=== PATIENT | male | born 1950 | race Caucasian/White ===

== ENCOUNTER 2017-01-31 09:47 | Inpatient (IN) | payer OTHER ==
[2017-01-31] VITALS (8 sets, daily range): BP systolic 117–148; BP diastolic 40–97; O2SAT 92–98
[~2017-01-31] VITALS: Ht 180.3 cm; Wt 165.3 kg
[~2017-01-31 09:47] MED LIST: ATEN25TA PO; AUGM875T27 PO; DULC5TAB PO; FURO1TAB15 PO; KLOR1TAB69 PO; LISI40TAB PO; NAPR500T2 PO; PERC5TAB6 PO; PRAD75CA3 PO; PRAV10TA PO; PROT1TAB2 PO; RAMI10CA PO; TYLE325T5 PO; ZITH500T PO
[2017-01-31] MEDS ORDERED: NS 500 ML IV ONE ×2 (10:00→12:00)
[2017-01-31 10:42] LABS: BASO % 0.5 % (0.0-1.0); EOS # 0.1 K/mm3 (0.0-0.50); EOS % 1.1 % (0.0-3.0); LARGE UNSTAINED CELL # 0.1 K/mm3 (0.0-0.4); LARGE UNSTAINED CELL % 1.1 % (0.0-4.0); LYMPH # 1.1 K/mm3 (1.5-4.5); LYMPH % 19.3 % (24.0-44.0); MEAN CORPUSCULAR HEMOGLOBIN 32.3 pg (27.0-33.0); MEAN CORPUSCULAR HGB CONC 33.4 g/dl (32.0-36.5); MEAN CORPUSCULAR VOLUME 96.5 fl (80.0-96.0); MONO # 0.4 K/mm3 (0.0-0.8); MONO % 6.7 % (0.0-5.0); NEUTROPHILS # 4.1 K/mm3 (1.8-7.7); NEUTROPHILS % 71.3 % (36.0-66.0); PLATELET COUNT, AUTOMATED 223 k/mm3 (150-450); RED CELL DISTRIBUTION WIDTH 12.5 % (11.5-14.5); WHITE BLOOD COUNT 5.7 K/mm3 (4.0-10.0)
[2017-01-31 11:09] LABS: ALBUMIN 3.2 GM/DL (3.2-5.2); ALBUMIN/GLOBULIN RATIO 0.97 (1.00-1.93); ALKALINE PHOSPHATASE 51 U/L (45-117); ALT/SGPT 14 U/L (12-78); ANION GAP 7 MEQ/L (8-16); AST/SGOT 16 U/L (15-37); BILIRUBIN,DIRECT 0.2 MG/DL (0.0-0.2); BILIRUBIN,TOTAL 0.5 MG/DL (0.2-1.0); BLOOD UREA NITROGEN 24 MG/DL (7-18); CALCIUM LEVEL 8.4 MG/DL (8.8-10.2); CARBON DIOXIDE LEVEL 30 MEQ/L (21-32); CHLORIDE LEVEL 91 MEQ/L (98-107); CREATININE FOR GFR 0.78 MG/DL (0.70-1.30); GLOMERULAR FILTRATION RATE > 60.0 (>49); GLUCOSE, FASTING 120 MG/DL (80-110); POTASSIUM SERUM 4.2 MEQ/L (3.5-5.1); SODIUM LEVEL 128 MEQ/L (136-145); TOTAL PROTEIN 6.5 GM/DL (6.4-8.2)
[2017-01-31 11:40] LABS: INR 1.18
[2017-01-31] MEDS ORDERED: ISOVUE-370 76% 100ML VIAL (Q9967) As Ordered ONE (12:15)
[2017-01-31] MEDS ORDERED: ONDANSETRON 4MG/2ML VIAL (J2405) IV PRN ×2 (13:45→16:45)
[2017-01-31] MEDS ORDERED: LISI40TAB PO (13:52)
[2017-01-31] MEDS ORDERED: POTA20TA PO (13:52)
--- NOTE | 2017-01-31 15:11 | REP ---
CT ABDOMEN AND PELVIS WITH CONTRAST: HISTORY: Epigastric pain. CONTRAST: Isovue-370, 100 mL. There is thickening of the wall of the antrum of the stomach and proximal duodenum. Stranding is present in the surrounding fat. There is no free air. An 8 mm hypodensity is present in the left lobe of the liver. A 1.6 cm hypodensity is present in the right lobe of the liver. These may represent cysts. The gallbladder, pancreas, spleen, adrenal glands, and kidneys are normal in appearance. There is no adenopathy or free fluid. A 4 cm ventral abdominal hernia containing fat is present. The prostate gland and urinary bladder are normal in appearance. A calcified granuloma is present in the right lower lobe. Degenerative change is present in the spine. IMPRESSION: 1. There is thickening of the wall of the antrum of the stomach and proximal duodenum. There is stranding in the surrounding fat. This may be secondary to gastritis, ulcer, or possibly mass. 2. There are two hypodensities in the liver that may represent cysts. Ultrasound may be helpful for further evaluation. 3. 4 cm ventral fat-containing abdominal hernia. 4. Old granulomatous disease. Signed by Osei Huizar MD 01/31/2017 03:04 P
[2017-01-31] MEDS ORDERED: PROPOFOL 200 MG/20 ML VIAL As Ordered ONE (15:13)
[2017-01-31] MEDS ORDERED: LIDOCAINE 2% INJ 100 MG/5 ML SDV (FOR ANES.) As Ordered ONE (15:16)
--- NOTE | 2017-01-31 16:16 | HPE ---
DATE OF ADMISSION: 01/31/2017 PRIMARY CARE PROVIDER: [facility]. CODE STATUS: FULL CHIEF COMPLAINT: Melena. HISTORY OF PRESENT ILLNESS: Mr. Kunal Gross is a 66-year-old male with past medical history of atrial fibrillation on chronic Pradaxa, morbid obesity, who presented to the emergency department (ED) today with complaint of melena. Episode started yesterday morning after he woke up. Noticed that there is some unknown amount of black stool in his toilet. He is unable to quantify how much of his stool was bloody, but did not think it filled up the whole toilet bowl. He had another episode again at 10 p.m. last night, with amount increased. Reported very loose bowel movements. Denies similar episodes in the past. Despite his symptoms, he did not come in until today because he wanted to wait. His last bowel movement was last night. Denies any chest pain, shortness of breath, palpitations, nausea, vomiting, fevers, chills, lightheadedness, dizziness. Reported approximately 10-20 weight loss in the last six months which is intentional for him. Never had a colonoscopy. Had an esophagogastroduodenoscopy (EGD) two years ago. Has been compliant with all his medications. Denies non-steroidal anti-inflammatory drugs (NSAIDs) use. His last Pradaxa use was yesterday evening. In the emergency room (ER), he was found to be fecal occult blood test (FOBT) positive. Dr. Wellington was contacted. He was also given a total of one liter of NS in the ER. PAST MEDICAL HISTORY: 1. Atrial fibrillation on Pradaxa. 2. Perforated gastric ulcer. 3. Hyperlipidemia. 4. Hypertension. 5. Prior history of respiratory failure postoperatively requiring intubation in October 2014. 6. Morbid obesity. No recorded history but suspected obstructive sleep apnea. PAST SURGICAL HISTORY: 1. EGD in June 2015, normal. 2. October 2014, exploratory laparotomy due to perforated gastric ulcer. 3. Left leg surgery in 1987. ALLERGIES: No known drug allergies. HOME MEDICATIONS: - Tylenol 650 mg every six hours as needed - atenolol 25 mg by mouth twice a day - Dulcolax 10 mg by mouth twice a day as needed - Pradaxa 75 mg by mouth daily - Lasix 80 mg by mouth daily - Lisinopril 40 mg by mouth daily - Percocet 5/325 mg by mouth as needed every four hours - Protonix 40 mg by mouth twice a day - potassium chloride 20 mEq by mouth daily - Pravachol 10 mg by mouth daily - ramipril 10 mg by mouth twice a day FAMILY HISTORY: Mother and brother with unknown cancers. SOCIAL HISTORY: He is an ex smoker. Used to smoke for only a total of six years, quite 1987. No alcohol currently. Used to drink on social occasions only. Quit five years ago. No drug use. 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 Currently lives at home. No kids. No pets. No lifetime travel. He is a resident of [place]. No exposure to chemicals, asbestos, tuberculosis he is aware of. REVIEW OF SYSTEMS: CONSTITUTIONAL: Positive for intentional 20 pound weight loss in the last six months. HENT: Denies headaches, lightheadedness, dizziness, blurry vision, difficulty with speech and swallow. EYES: No blurry vision, diplopia, transient vision loss. CARDIOVASCULAR: Reports chronic leg swelling which he currently denies. No chest pain, shortness of breath, paroxysmal nocturnal dyspnea, pillow orthopnea. PULMONARY: Denies shortness of breath, productive cough, hemoptysis. GASTROINTESTINAL: As above. GENITOURINARY: Reports tea-color urine, but no dysuria, urinary urgency, frequency or hematuria. MUSCULOSKELETAL: No bone, muscle, joint pain. NEUROLOGICAL: No paralysis, paresthesia, headaches. ENDOCRINE: Denies thyroid or diabetes. LYMPHATICS: No lumps, bumps, or swelling anywhere in neck, axilla, or groin. HEMATOLOGY: Positive for melena as mentioned above. No hematemesis, hematochezia. SKIN: No new rashes. PSYCHIATRIC: No depression/anxiety. PHYSICAL EXAMINATION: VITAL SIGNS: Blood pressure 104/70, heart rate 91, temperature 98, respiratory rate 20, pulse oximetry 92% on room air. Weight is 154 kg. Body mass index (BMI) is 47. GENERAL: The patient is lying in bed comfortable, no acute distress. Alert, awake, oriented times three. Pleasant, cooperative, appears stated age. Morbidly obese appearing. HEENT: Normocephalic, atraumatic. Moist oral mucosa. Upper portion edentulous. Lower portion with multiple missing teeth. Eyes: Extraocular movement intact. Pupils equal and reactive to light. NECK: Large. Could not appreciate jugular venous distention (JVD) secondary to large neck size. Trachea appears midline. CHEST: Symmetric chest rise. No accessory muscle use. Breath sounds were diminished bilateral lung bases, but did not appreciate crackles, rales or rhonchi. HEART: Irregular but not tachycardic. Variable S1, S2. Distant sounding. Could not appreciate murmurs, rubs, or gallops. ABDOMEN: Obese but nontender, nondistended. Bowel sounds present. No guarding, no rebound, no peritoneal signs. He has an umbilical hernia that is reducible. EXTREMITIES: There is pitting edema bilateral lower extremities 1+. Reportedly is chronic for him and has not worsened. GENITOURINARY: Rectal exam was checked by ED physician and FOBT was positive. NEUROLOGIC: No focal deficits appreciated. Cranial nerves II through XII grossly intact. Did not assess gait. SKIN: No obvious rashes or lesions. PSYCHIATRIC: Pleasant, cooperative. Normal affect. LABORATORY DATA: WBC 5.7, hemoglobin 12.9, hematocrit 38.5, platelets 223. Sodium 128, potassium 4.2, chloride 91, carbon dioxide 30, BUN 24, creatinine 0.78, glucose 120, lactic acid 2.9. Calcium 8.4, lipase 160. Liver profile normal. Coagulation studies PT 15.1, INR 1.18. MICROBIOLOGY: Blood culture pending. IMAGING: CT abdomen and pelvis: Official report is pending. Preliminary report shows thickened wall distal stomach proximal duodenum, stranding in surrounding fat. Question gastritis, ulcer or mass. 4 cm central fat-containing hernia. EKG showed atrial fibrillation with nonspecific T-wave abnormality, ventricular rate of 92, QTC 422. IMPRESSION AND PLAN: Mr. Gross is a 66-year-old male with past medical history of atrial fibrillation on Pradaxa, who presented to the emergency department (ED) with complaint of melena. 1. Melena. Suspect upper gastrointestinal (GI) bleed likely secondary to Pradaxa. The patient's last EGD was approximately two years ago; at that time was normal. Despite his age, he has never had a colonoscopy. Other possible causes for a GI bleed include arteriovenous (AF) malformation, ulcer, gastritis versus other. The patient will be monitored closely. Check orthostatic vital signs. Trend hemoglobin and hematocrit. The patient will be made nothing by mouth for now. His blood pressure is stable. Continue proton pump inhibitor (PPI) but intravenously (IV). ED provider has already contacted Dr. Wellington. We will followup with his recommendation. Blood consent is in place. 2. Elevated lactic acid. This is likely secondary to number one. Repeat laboratories in four hours. He did receive a one liter bolus in the ER. 3. Abnormal CT. CT reading incidentally picked up questionable gastritis and/or mass with wall thickening. Will followup with Dr. Wellington regarding this. 4. Hyponatremia. Etiology unclear. Could be secondary to volume status. We will check urine osmolality, urine sodium, and followup labs. 5. Atrial fibrillation. Currently rate controlled. Continue atenolol home dose with hold parameters. Hold Pradaxa due to GI bleed as mentioned above. Medication can be resumed whenever cleared by gastroenterology. 6. Hypertension. Blood pressure is more on the low end. Will check orthostatic vital signs. Will hold home diuretics for now, along with his lisinopril. 7. Hyperlipidemia. Continue home dose Pravachol. 8. Gastroesophageal reflux disease (GERD). He will be on IV Protonix as mentioned above. 9. Morbid obesity. Body mass index (BMI) 47. Will unfortunately complicate medical management. 10. Deep venous thrombosis (DVT) prophylaxis. Sequential compression devices (SCDs), thromboembolism deterrent stockings (TEDs). No pharmacological intervention due to melena. DISPOSITION: Due to the patient's condition, we expect his stay to be greater than two midnights. My preceptor for this patient encounter was Dr. Chacorta Adkins. The preceptor was physically present in the building during the encounter and was fully available as needed. All aspects of the patient interview, examination, medical decision making process, and medical care plan development were reviewed and approved by the preceptor. The preceptor is aware and concurs with the plan as stated in the body of this note and will attest to such by his/her co-signature. DEMETRIS
--- NOTE | 2017-01-31 16:33 | ROOR ---
Patient Name: Kunal Gross Procedure Date: 01/31/2017 4:09 PM Date of : 1950 Age: 66 Gender: Male Note Status: Finalized Procedure: Upper GI endoscopy Indications: Acute post hemorrhagic anemia, Melena Providers: Julian WELLINGTON MD Referring MD: [facility] Ver[facility] GARC[facility], Admin. Requesting Provider: Medicines: Monitored Anesthesia Care Complications: No immediate complications. Procedure: Pre-Anesthesia Assessment: - The heart rate, respiratory rate, oxygen saturations, blood pressure, adequacy of pulmonary ventilation, and response to care were monitored throughout the procedure. The Endoscope was introduced through the mouth, and advanced to the second part of duodenum. The upper GI endoscopy was accomplished without difficulty. The patient tolerated the procedure well. Findings: The examined esophagus was normal. The entire examined stomach was normal. One partially obstructing non-bleeding deeply cratered duodenal ulcer with centrally adherent pigmented material was found in the duodenal bulb just past the pylorus. The lesion was fifteen mm by fifteen mm in largest dimension. This was biopsied with a cold forceps for histology. Impression: - Normal esophagus. - Normal stomach. - One partially obstructing non-bleeding, deeply cratered duodenal ulcer (just the pylorus) with adherent pigmented material. There is no evidence of perforation. Ulcer margins were Biopsied. (no prophylactic therapy applied, as there is no active or very recent bleeding-brown/black adherent material and clear gastric and duodenal fluid). I am also concerned with the depth of ulcer through the wall and unable to safely get into a good position) Recommendation: - NPO except for meds today - Observe patient's clinical course--monitor for rebleeding and for spontaneous perforation/peritonitis. - Monitor BUN, vitals and H&H for rebleeding. Refer to a surgeon if symptoms persist (this is a large and deeply craterd ulcer) - Use Protonix (pantoprazole) 40 mg PO BID. - Hold Pradaxa for next 10 days. Julian Wellington MD Julian WELLINGTON MD 01/31/2017 4:32:41 PM This report has been signed electronically. Number of Addenda: 0 Note Initiated On: 01/31/2017 4:09 PM Estimated Blood Loss: Estimated blood loss: none.
[2017-01-31] MEDS: ATENOLOL 25 MG TAB PO SCH ×2 (17:47→17:58)
[2017-01-31] MEDS: PANTOPRAZOLE 40MG INJ (PROTONIX) (C9113) IV SCH ×2 (17:47→17:57)
[2017-02-01] VITALS (13 sets, daily range): BP systolic 108–136; BP diastolic 55–81; O2SAT 94–99
[2017-02-01] MEDS ORDERED: SLF 3 ML SYR IV PRN (04:15)
[2017-02-01] MEDS: SLF 3 ML SYR IV SCH ×3 (05:33→20:37)
[2017-02-01 05:38] LABS: MEAN CORPUSCULAR HEMOGLOBIN 31.5 pg (27.0-33.0); MEAN CORPUSCULAR HGB CONC 32.4 g/dl (32.0-36.5); MEAN CORPUSCULAR VOLUME 97.5 fl (80.0-96.0); RED CELL DISTRIBUTION WIDTH 12.8 % (11.5-14.5); WHITE BLOOD COUNT 5.2 K/mm3 (4.0-10.0)
[2017-02-01 05:55] LABS: ALBUMIN 2.8 GM/DL (3.2-5.2); ANION GAP 7 MEQ/L (8-16); BLOOD UREA NITROGEN 14 MG/DL (7-18); CALCIUM LEVEL 7.7 MG/DL (8.8-10.2); CARBON DIOXIDE LEVEL 28 MEQ/L (21-32); CHLORIDE LEVEL 94 MEQ/L (98-107); GLOMERULAR FILTRATION RATE > 60.0 (>49); GLUCOSE, FASTING 95 MG/DL (80-110); PHOSPHORUS LEVEL 3.1 MG/DL (2.5-4.9); POTASSIUM SERUM 4.6 MEQ/L (3.5-5.1); SODIUM LEVEL 129 MEQ/L (136-145)
[2017-02-01] MEDS: PRAVASTATIN 10 MG TAB PO SCH (09:48)
[2017-02-01] MEDS: PANTOPRAZOLE 40MG INJ (PROTONIX) (C9113) IV SCH ×2 (09:49→20:37)
[2017-02-01] MEDS: ATENOLOL 25 MG TAB PO SCH (09:49)
--- NOTE | 2017-02-01 15:31 | IPNPDOC ---
Date Seen The patient was seen on 02/01/17. Progress Note Hospitalist Progress Note Subjective: Patient denies any further bleeding or abdominal pain. He states he overall feels well Objective: Physical Exam: Vitals: Vital Sign - Last 24 Hours 01/31/17 01/31/17 01/31/17 01/31/17 16:11 16:25 16:40 16:55 Temp 97.3 97.9 Pulse 90 91 86 88 Resp 18 16 16 16 B/P (MAP) 99/67 (78) 106/53 (70) 110/55 (73) 116/66 (83) Pulse Ox 92 100 99 98 O2 Delivery Nasal Cannula Nasal Cannula Nasal Cannula Nasal Cannula O2 Flow Rate 3 3 2 2 01/31/17 01/31/17 01/31/17 01/31/17 17:15 17:30 17:45 17:58 Temp 97.0 97.9 Pulse 83 78 90 108 96 108 Resp 18 18 B/P (MAP) 145/67 (93) 132/97 (109) 144/80 (101) 125/73 117/72 (87) 125/73 (90) Pulse Ox 98 94 O2 Delivery Room Air Room Air 01/31/17 01/31/17 01/31/17 01/31/17 18:00 18:45 20:00 20:00 Temp 97.4 99.6 Pulse 71 73 Resp 18 18 B/P (MAP) 148/63 (91) 129/76 (93) Pulse Ox 92 92 93 O2 Delivery Room Air Room Air Room Air Room Air 01/31/17 01/31/17 01/31/17 01/31/17 20:00 22:00 23:00 23:41 Temp 98.9 Pulse 67 Resp 18 B/P (MAP) 123/40 (67) Pulse Ox 98 93 94 O2 Delivery Room Air Room Air Room Air Nasal Cannula O2 Flow Rate 1.0 02/01/17 02/01/17 02/01/17 02/01/17 00:00 01:00 02:00 03:00 Pulse Ox 97 97 94 98 O2 Delivery Nasal Cannula Nasal Cannula Nasal Cannula Nasal Cannula O2 Flow Rate 1.0 1.0 1.0 1.0 02/01/17 02/01/17 02/01/17 02/01/17 04:00 04:00 04:45 08:00 Temp 98.3 97.0 Pulse 61 67 Resp 20 20 B/P (MAP) 136/81 (99) 128/68 (88) Pulse Ox 94 98 100 O2 Delivery Nasal Cannula Room Air Nasal Cannula Nasal Cannula O2 Flow Rate 1.0 1.0 1.0 02/01/17 02/01/17 02/01/17 02/01/17 08:13 08:15 09:49 12:00 Temp 97.6 Pulse 67 57 Resp 18 B/P (MAP) 128/68 115/64 (81) Pulse Ox 99 92 O2 Delivery Room Air Nasal Cannula Nasal Cannula O2 Flow Rate 1.0 1.0 02/01/17 12:00 Pulse Ox 95 O2 Delivery Nasal Cannula O2 Flow Rate 1.0 General: Awake, alert, no acute distress HEENT: Normocephalic, atraumatic, extraocular movements intact CV: Irregularly irregular, slightly slow Lungs: Clear to auscultation bilaterally Abd: Obese, soft, nontender Extremities: 1+ edema of the bilateral lower extremities Neuro: Alert and oriented 3, normal speech Psych: And normal mood and affect Labs and Imaging: Laboratory Tests 01/31/17 16:56 01/31/17 22:02 02/01/17 05:00 Red Blood Count 3.51 L, Mean Corpuscular Volume 97.5 H, Mean Corpuscular Hemoglobin 31.5, Mean Corpuscular Hemoglobin Concent 32.4, Red Cell Distribution Width 12.8, Anion Gap 7 L Assessment and Plan: 66-year-old male with chronic A. fib, morbid obesity, history of perforated gastric ulcer, hypertension, hyperlipidemia who presented with melena. 1. UGI bleed: He underwent EGD yesterday with Dr. Wellington, who found a nonbleeding duodenal ulcer. This ulcer was very deeply cratered, and biopsies have been sent. I spoke to Dr. Wellington today, and he has cleared the patient to advance to a clears diet this evening. He would like the patient to start twice a day oral Protonix, and to hold off on his pradaxa approximately 10-14 days, until he is able to reevaluate him in the office. If doing well tomorrow, he states the patient could try a soft diet, and go home in a couple days. 2. Acute blood loss anemia: Hemoglobin upon arrival was 12.9, and it is slowly trended down to 11.1. He is not required any transfusion at this point. We will continue to monitor. 3. Hyponatremia: Sodium upon admission was 128, and with some hydration it is now 129. We'll continue to monitor. 4. Possible hepatic cysts: CT of the abdomen and pelvis showed several liver cysts and recommended an ultrasound. LFTs are normal, but we will evaluate with a right upper quadrant ultrasound. 5. Chronic A. fib: We are currently holding the patient's home Pradaxa. He was noted to have some heart rates in the 50s, and even a brief, asymptomatic period of heart rates in the upper 40s. We will stop his beta delmi and continue to monitor on telemetry. 6. Hypertension: Holding home beta delmi given bradycardia. Currently holding home Lasix and INDRA inhibitor 7. Hyperlipidemia: Continue home statin. DVT prophylaxis: SCDs Dispo: pending stabilization of his hemoglobin, as well as heart rate VS[facility]O Vital Signs Date Time Temp Pulse Resp B/P (MAP) Pulse Ox O2 Delivery O2 Flow Rate FiO2 02/01/17 12:00 95 Nasal Cannula 1.0 02/01/17 12:00 97.6 57 18 115/64 (81) I&O- Last 24 Hours up to 6 AM 02/01/17 06:00 Intake Total 1300 ml Output Total 950 ml Balance 350 ml Laboratory Data 24H LABS Laboratory Tests 2 01/31/17 22:02: Total Creatine Kinase 38L, Creatine Kinase MB 1.6, Creatine Kinase MB Relative Index 4.21H, Troponin I < 0.02 02/01/17 05:00: Total Creatine Kinase 44, Creatine Kinase MB 1.9, Creatine Kinase MB Relative Index 4.31H, Troponin I 0.02, Blood Urea Nitrogen 14, Creatinine 0.60L, Sodium Level 129L, Potassium Level 4.6, Chloride Level 94L, Carbon Dioxide Level 28, Anion Gap 7L, Glomerular Filtration Rate > 60.0, Calcium Level 7.7L, Phosphorus Level 3.1, Albumin 2.8L CBC/BMP Laboratory Tests 01/31/17 16:56 01/31/17 22:02 02/01/17 05:00 Red Blood Count 3.51 L, Mean Corpuscular Volume 97.5 H, Mean Corpuscular Hemoglobin 31.5, Mean Corpuscular Hemoglobin Concent 32.4, Red Cell Distribution Width 12.8, Anion Gap 7 L Microbiology Microbiology 01/31/17 Blood Culture - Preliminary, Resulted No growth after 24 hours . All specim... 01/31/17 Blood Culture - Preliminary, Resulted No growth after 24 hours . All specim... SHARMILA OVIEDO Feb 01, 2017 15:31
[2017-02-02] VITALS (21 sets, daily range): BP systolic 109–136; BP diastolic 53–75; O2SAT 86–99
[2017-02-02 05:09] LABS: MEAN CORPUSCULAR HEMOGLOBIN 31.5 pg (27.0-33.0); MEAN CORPUSCULAR HGB CONC 32.8 g/dl (32.0-36.5); RED CELL DISTRIBUTION WIDTH 12.5 % (11.5-14.5); WHITE BLOOD COUNT 5.6 K/mm3 (4.0-10.0)
[2017-02-02 05:33] LABS: ALBUMIN 2.7 GM/DL (3.2-5.2); ANION GAP 5 MEQ/L (8-16); BLOOD UREA NITROGEN 10 MG/DL (7-18); CARBON DIOXIDE LEVEL 31 MEQ/L (21-32); CHLORIDE LEVEL 95 MEQ/L (98-107); GLOMERULAR FILTRATION RATE > 60.0 (>49); GLUCOSE, FASTING 92 MG/DL (80-110); PHOSPHORUS LEVEL 3.1 MG/DL (2.5-4.9); POTASSIUM SERUM 4.3 MEQ/L (3.5-5.1); SODIUM LEVEL 131 MEQ/L (136-145)
--- NOTE | 2017-02-02 05:47 | ECGEPIP ---
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
[2017-02-02] MEDS: SLF 3 ML SYR IV SCH ×3 (06:00→21:59)
[2017-02-02] MEDS ORDERED: PREVNAR 13 VACCINE SYRINGE (CPT CODE:90670) IM ONE (09:00)
[2017-02-02] MEDS: PANTOPRAZOLE 40MG INJ (PROTONIX) (C9113) IV SCH ×2 (09:46→21:59)
[2017-02-02] MEDS: PRAVASTATIN 10 MG TAB PO SCH (09:46)
--- NOTE | 2017-02-02 13:39 | REP ---
RIGHT UPPER QUADRANT ULTRASOUND: Real-time sonographic of the right upper quadrant performed. This study is limited due to patient body habitus and bowel gas. The gallbladder demonstrates no evidence of intraluminal sludge or calculi, wall thickening, or pericholecystic fluid. There is no intrahepatic or extrahepatic biliary dilatation. Common bile duct is upper limits of normal in diameter at 7 mm. There is diffuse heterogeneous increased echotexture of the liver compatible with diffuse fibrofatty infiltration. No gross mass is seen. Pancreas could not be visualized. Right kidney demonstrates no hydronephrosis with normal size at 10.7 cm in length. IMPRESSION: Diffuse fibrofatty infiltration of the liver. No gross mass sonographically, but this study is limited due to body habitus, bowel gas and the diffuse fibrofatty infiltration. Correlating with the CT of 01/31/2017 the hypodensity along the anterior fissure for the ligamentum teres appears to represent focal fatty infiltration. The other 8 mm nodule laterally in the left lobe is too small to characterize. Recommend followup CT with contrast in 6 months. Signed by Francisco Stiles MD 02/02/2017 05:44 P
--- NOTE | 2017-02-02 14:07 | IPNPDOC ---
Date Seen The patient was seen on 02/02/17. Progress Note Hospitalist Progress Note Subjective: Patient denies any further bleeding or abdominal pain. He has no complaints. Objective: Physical Exam: Vitals: Vital Sign - Last 24 Hours 02/01/17 02/01/17 02/01/17 02/01/17 16:00 16:00 20:30 21:09 Temp 97.0 97.4 Pulse 53 58 Resp 18 20 B/P (MAP) 112/55 (74) 108/66 (80) Pulse Ox 98 97 98 O2 Delivery Nasal Cannula Nasal Cannula Room Air Nasal Cannula O2 Flow Rate 1.0 1.0 2.0 02/01/17 02/02/17 02/02/17 02/02/17 23:34 04:51 07:00 07:55 Temp 98.6 98.6 Pulse 60 67 Resp 20 18 B/P (MAP) 127/71 (89) 109/75 (86) Pulse Ox 99 97 99 O2 Delivery Nasal Cannula Nasal Cannula Nasal Cannula Room Air O2 Flow Rate 2.0 2.0 2.0 02/02/17 02/02/17 02/02/17 02/02/17 08:00 08:00 09:00 09:05 Temp 97.7 Pulse 85 Resp 18 B/P (MAP) 136/69 (91) Pulse Ox 94 94 86 88 O2 Delivery Nasal Cannula Nasal Cannula Room Air Nasal Cannula O2 Flow Rate 2.0 2.0 1.0 02/02/17 02/02/17 02/02/17 02/02/17 09:10 10:00 11:00 11:53 Temp 97.4 Pulse 71 Resp 18 B/P (MAP) 135/54 (81) Pulse Ox 94 97 97 92 O2 Delivery Nasal Cannula Nasal Cannula Nasal Cannula O2 Flow Rate 2.0 2.0 2.0 2.0 02/02/17 12:00 Pulse Ox 98 O2 Delivery Nasal Cannula O2 Flow Rate 1.0 General: Awake, alert, no acute distress HEENT: Normocephalic, atraumatic, extraocular movements intact CV: Irregularly irregular Lungs: Clear to auscultation bilaterally, no wheeze Abd: Obese, soft, nontender Extremities: 1+ edema of the bilateral lower extremities Neuro: Alert and oriented 3, normal speech Psych: normal mood and affect Labs and Imaging: Laboratory Tests 02/02/17 04:56 Red Blood Count 3.49 L, Mean Corpuscular Volume 96.0, Mean Corpuscular Hemoglobin 31.5, Mean Corpuscular Hemoglobin Concent 32.8, Red Cell Distribution Width 12.5, Anion Gap 5 L Assessment and Plan: 66-year-old male with chronic A. fib, morbid obesity, history of perforated gastric ulcer, hypertension, hyperlipidemia who presented with melena. 1. UGI bleed: He underwent EGD with Dr. Wellington, who found a nonbleeding duodenal ulcer. This ulcer was very deeply cratered, and biopsies have been sent. I spoke to Dr. Wellington on Thursday. He would like the patient to start twice a day oral Protonix, and to hold off on his pradaxa approximately 10-14 days, until he is able to reevaluate him in the office. He is doing well today and has not had further bleeding, so we will advance to a soft diet. If doing well tomorrow, and able to tolerate a regular diet, he can probably go home. 2. Acute blood loss anemia: Hemoglobin upon arrival was 12.9, and has now stabilized around 11. He has not required any transfusion at this point. We will continue to monitor. 3. Hyponatremia: Sodium upon admission was 128, and with some hydration it is now 131. We'll continue to monitor. 4. Possible hepatic cysts: CT of the abdomen and pelvis showed several liver cysts and recommended an ultrasound. LFTs are normal. RUQ U/S shows "diffuse fibrofatty infiltration of the liver. No gross mass, but limited due to body habitus, bowel gas and the diffuse fibrofatty infiltration. Correlating with the CT of 01/31/2017 the hypodensity along the anterior fissure for the ligamentum teres appears to represent focal fatty infiltration. The other 8 mm nodule laterally in the left lobe is too small to characterize. Recommend followup CT with contrast in 6 months." 5. Chronic A. fib: We are currently holding the patient's home Pradaxa. On Thursday, he was noted to have some heart rates in the 50s, and even a brief, asymptomatic period of heart rates in the upper 40s. Later in the evening, he had a 3 second pause where he was asymptomatic. We stopped his beta delmi, but he had already received it yesterday morning. HR today seems to be improving; continue to monitor on telemetry. 6. Hypertension: Holding home beta delmi given bradycardia. Currently holding home Lasix and INDRA inhibitor. BP has been stable. 7. Hyperlipidemia: Continue home statin. DVT prophylaxis: SCDs Dispo: pending stabilization of heart rate VS, I&O, 24H, Erikbone Vital Signs/I&O Vital Signs Date Time Temp Pulse Resp B/P (MAP) Pulse Ox O2 Delivery O2 Flow Rate FiO2 02/02/17 12:00 98 Nasal Cannula 1.0 02/02/17 11:53 97.4 71 18 135/54 (81) I&O- Last 24 Hours up to 6 AM 02/02/17 05:59 Intake Total 510 ml Output Total 1700 ml Balance -1190 ml Laboratory Data 24H LABS Laboratory Tests 2 02/02/17 04:56: Blood Urea Nitrogen 10, Creatinine 0.70, Sodium Level 131L, Potassium Level 4.3 , Chloride Level 95L, Carbon Dioxide Level 31, Anion Gap 5L, Glomerular Filtration Rate > 60.0, Calcium Level 8.0L, Phosphorus Level 3.1, Albumin 2.7L CBC/BMP Laboratory Tests 02/02/17 04:56 Red Blood Count 3.49 L, Mean Corpuscular Volume 96.0, Mean Corpuscular Hemoglobin 31.5, Mean Corpuscular Hemoglobin Concent 32.8, Red Cell Distribution Width 12.5, Anion Gap 5 L Microbiology Microbiology 01/31/17 Blood Culture - Preliminary, Resulted No Growth after 48 hours. All Specime... 01/31/17 Blood Culture - Preliminary, Resulted No Growth after 48 hours. All Specime... SHARMILA OVIEDO February 02, 2017 14:07
[2017-02-03] VITALS (19 sets, daily range): BP systolic 115–147; BP diastolic 60–87; O2SAT 89–98
[2017-02-03 06:05] LABS: MEAN CORPUSCULAR HEMOGLOBIN 32.7 pg (27.0-33.0); MEAN CORPUSCULAR HGB CONC 33.2 g/dl (32.0-36.5); MEAN CORPUSCULAR VOLUME 98.6 fl (80.0-96.0); RED CELL DISTRIBUTION WIDTH 12.5 % (11.5-14.5); WHITE BLOOD COUNT 5.9 K/mm3 (4.0-10.0)
[2017-02-03 06:26] LABS: ALBUMIN 2.7 GM/DL (3.2-5.2); ANION GAP 5 MEQ/L (8-16); BLOOD UREA NITROGEN 9 MG/DL (7-18); CALCIUM LEVEL 7.8 MG/DL (8.8-10.2); CARBON DIOXIDE LEVEL 32 MEQ/L (21-32); CHLORIDE LEVEL 94 MEQ/L (98-107); CREATININE FOR GFR 0.71 MG/DL (0.70-1.30); GLOMERULAR FILTRATION RATE > 60.0 (>49); GLUCOSE, FASTING 105 MG/DL (80-110); PHOSPHORUS LEVEL 2.9 MG/DL (2.5-4.9); POTASSIUM SERUM 3.9 MEQ/L (3.5-5.1); SODIUM LEVEL 131 MEQ/L (136-145)
[2017-02-03] MEDS: SLF 3 ML SYR IV SCH ×3 (06:26→22:02)
--- NOTE | 2017-02-03 08:20 | IPNPDOC ---
Subjective Date Seen The patient was seen on 02/03/17. Subjective Chief Complaint/HPI The patient is a 66-year-old male admitted with a reason for visit of Gi Bleed. General: Denies: ROS Unobtainable, Chills, Night Sweats, Fatigue, Malaise, Normal Appetite, Other Symptoms Constitutional: Denies: Chills, Fever, Malaise, Night Sweats, Weakness, Fatigue , Weight Loss, Lethargy, Other Eyes: Denies: Pain, Vision change, Conjunctivae inflammation, Eyelid inflammation, Redness, Other ENT: Denies: Head Aches, Ear Pain, Dysphagia, Sinus Congestion, Post Nasal Drip , Sore Throat, Epistaxis, Other Symptoms Skin: Denies: Rash, Lesions, Jaundice, Bruising, Itching, Dry, Breakdown, Nail Changes, Other Pulmonary: Denies: Dyspnea, Cough, Pleuritic Chest Pain, Other Symptoms Cardiovascular: Denies: Chest Pain, Palpitations, Orthopnea, Paroxysmal Noc. Dyspnea, Edema, Lt Headedness, Other Symptoms Gastrointestinal: Denies: Nausea, Vomiting, Abdominal Pain, Diarrhea, Constipation, Melena, Hematochezia, Other Symptoms Genitourinary: Denies: Dysuria, Frequency, Incontinence, Hematuria, Retention, Other Symptoms Neurological: Reports: Weakness, Denies: Numbness, Incoordination, Change in speech, Confusion, Seizures, Other Symptoms Objective Physical Examination General Exam: Positive: Alert, Cooperative, No Acute Distress Eye Exam: Positive: PERRLA, Conjunctiva & lids normal ENT Exam: Positive: Atraumatic, Mucous membr. moist/pink Neck Exam: Positive: Supple Chest Exam: Positive: Clear to auscultation, Normal air movement Heart Exam: Positive: Rate Normal, Irregular Rhythm Telemetry: Positive: Atrial fibrillation Abdomen Exam: Positive: Normal bowel sounds, Soft, Other (obese), Negative: Tenderness Psych Exam: Positive: Oriented x 3 Assessment /Plan Problems (1) GI bleed Status: Acute Response to Treatment: Compensated Discussed With: Patient Problem Specific Plan: Consult Specialist, Monitor Clinically, Repeat Labs Problem Text: nonbleeding deeply cratered duodenal ulcer as per egd transition to PO protonix hold pradaxa 10-14 days advance diet to regular h/h remains stable (2) Acute blood loss anemia Status: Resolved Response to Treatment: Stable Discussed With: Patient Problem Specific Plan: Monitor Clinically, Repeat Labs Problem Text: secondary to upper gi bleed stable continue to monitor - as per gi bleed (3) Hyponatremia Status: Resolved Response to Treatment: Stable Discussed With: Patient Problem Specific Plan: Repeat Labs (4) Abnormal CT of the abdomen Discussed With: Patient Problem Specific Plan: Repeat Tests Problem Text: possible hepatic cysts - recommend follow up ct with contrast in 6 months (5) Afib Status: Chronic Discussed With: Patient Problem Text: rate controlled - heart rates were low - bb on hold anti-coagulation on hold as per gi bleed (6) Hypertension Status: Chronic Discussed With: Patient Problem Specific Plan: Monitor Clinically Problem Text: home meds on hold - bb, lasix, acei (7) Hyperlipidemia Status: Chronic Problem Text: continue statin Plan/VTE VTE Prophylaxis Ordered?: Yes (mechanical) Plan Diet: Advance Activity: Advance, Encourage Ambulation Therapy: PT Respiratory: Wean Oxygen Diagnostics: Repeat Labs in AM Anticipated Discharge: Home, Home With Services Disposition Advance diet. Repeat H/H. PT eval/treat anticipate discharge in 24-48 hours. VS, I&O, 24H, Fishbone Vital Signs/I&O Vital Signs Date Time Temp Pulse Resp B/P (MAP) Pulse Ox O2 Delivery O2 Flow Rate FiO2 02/03/17 06:00 91 Nasal Cannula 2.0 02/03/17 04:00 99.5 81 20 137/78 (97) I&O- Last 24 Hours up to 6 AM 02/03/17 06:00 Intake Total 1220 ml Output Total 850 ml Balance 370 ml Laboratory Data 24H LABS Laboratory Tests 2 02/03/17 05:36: Blood Urea Nitrogen 9, Creatinine 0.71, Sodium Level 131L, Potassium Level 3.9, Chloride Level 94L, Carbon Dioxide Level 32, Anion Gap 5L, Glomerular Filtration Rate > 60.0, Calcium Level 7.8L, Phosphorus Level 2.9, Albumin 2.7L CBC/BMP Laboratory Tests 02/03/17 05:36 Red Blood Count 3.35 L, Mean Corpuscular Volume 98.6 H, Mean Corpuscular Hemoglobin 32.7, Mean Corpuscular Hemoglobin Concent 33.2, Red Cell Distribution Width 12.5, Anion Gap 5 L Microbiology Microbiology 01/31/17 Blood Culture - Preliminary, Resulted No Growth after 48 hours. All Specime... 01/31/17 Blood Culture - Preliminary, Resulted No Growth after 48 hours. All Specime... HUBERT JOHNSON MD February 03, 2017 08:20
[2017-02-03] MEDS: PRAVASTATIN 10 MG TAB PO SCH (08:42)
[2017-02-03] MEDS: PANTOPRAZOLE 40MG INJ (PROTONIX) (C9113) IV SCH (08:42)
[2017-02-03] MEDS: PANTOPRAZOLE 40MG TAB (PROTONIX) PO SCH (21:28)
[2017-02-03] MEDS: ACETAMINOPHEN TAB 650MG DOSE (2X325MG) PO PRN (21:29)
[2017-02-04] MEDS: SLF 3 ML SYR IV SCH ×3 (05:50→20:43)
[2017-02-04 06:00] VITALS: BP 145/65
[2017-02-04 07:07] LABS: MEAN CORPUSCULAR HEMOGLOBIN 31.8 pg (27.0-33.0); MEAN CORPUSCULAR HGB CONC 32.7 g/dl (32.0-36.5); MEAN CORPUSCULAR VOLUME 97.2 fl (80.0-96.0); RED CELL DISTRIBUTION WIDTH 12.7 % (11.5-14.5); WHITE BLOOD COUNT 5.4 K/mm3 (4.0-10.0)
[2017-02-04 07:27] LABS: ALBUMIN 2.6 GM/DL (3.2-5.2); ANION GAP 6 MEQ/L (8-16); BLOOD UREA NITROGEN 11 MG/DL (7-18); CALCIUM LEVEL 7.8 MG/DL (8.8-10.2); CARBON DIOXIDE LEVEL 33 MEQ/L (21-32); CHLORIDE LEVEL 93 MEQ/L (98-107); CREATININE FOR GFR 0.71 MG/DL (0.70-1.30); GLOMERULAR FILTRATION RATE > 60.0 (>49); GLUCOSE, FASTING 104 MG/DL (80-110); PHOSPHORUS LEVEL 3.7 MG/DL (2.5-4.9); POTASSIUM SERUM 3.9 MEQ/L (3.5-5.1); SODIUM LEVEL 132 MEQ/L (136-145)
[2017-02-04] MEDS: PRAVASTATIN 10 MG TAB PO SCH (09:05)
[2017-02-04] MEDS: LISINOPRIL 40 MG TAB PO SCH (09:06)
[2017-02-04] MEDS: PANTOPRAZOLE 40MG TAB (PROTONIX) PO SCH ×2 (09:06→20:43)
--- NOTE | 2017-02-04 13:15 | IPNPDOC ---
Subjective Date Seen The patient was seen on 02/04/17. Subjective Chief Complaint/HPI The patient is a 66-year-old male admitted with a reason for visit of Gi Bleed. General: Denies: ROS Unobtainable, Chills, Night Sweats, Fatigue, Malaise, Normal Appetite, Other Symptoms Constitutional: Denies: Chills, Fever, Malaise, Night Sweats, Weakness, Fatigue , Weight Loss, Lethargy, Other Eyes: Denies: Pain, Vision change, Conjunctivae inflammation, Eyelid inflammation, Redness, Other ENT: Denies: Head Aches, Ear Pain, Dysphagia, Sinus Congestion, Post Nasal Drip , Sore Throat, Epistaxis, Other Symptoms Skin: Denies: Rash, Lesions, Jaundice, Bruising, Itching, Dry, Breakdown, Nail Changes, Other Pulmonary: Reports: Dyspnea, Cough, Denies: Pleuritic Chest Pain, Other Symptoms Cardiovascular: Denies: Chest Pain, Palpitations, Orthopnea, Paroxysmal Noc. Dyspnea, Edema, Lt Headedness, Other Symptoms Gastrointestinal: Denies: Nausea, Vomiting, Abdominal Pain, Diarrhea, Constipation, Melena, Hematochezia, Other Symptoms Genitourinary: Denies: Dysuria, Frequency, Incontinence, Hematuria, Retention, Other Symptoms Objective Physical Examination General Exam: Positive: Alert, Cooperative, No Acute Distress Eye Exam: Positive: PERRLA, Conjunctiva & lids normal ENT Exam: Positive: Atraumatic, Mucous membr. moist/pink Neck Exam: Positive: Supple Chest Exam: Positive: Clear to auscultation, Normal air movement Heart Exam: Positive: Rate Normal, Irregular Rhythm Abdomen Exam: Positive: Normal bowel sounds, Soft, Other (obese), Negative: Tenderness Psych Exam: Positive: Oriented x 3 Assessment /Plan Problems (1) GI bleed Status: Acute Response to Treatment: Compensated Discussed With: Patient Problem Specific Plan: Consult Specialist, Monitor Clinically, Repeat Labs Problem Text: nonbleeding deeply cratered duodenal ulcer as per egd transition to PO protonix hold pradaxa 10-14 days advance diet to regular h/h remains stable (2) Acute blood loss anemia Status: Resolved Response to Treatment: Stable Discussed With: Patient Problem Specific Plan: Monitor Clinically, Repeat Labs Problem Text: secondary to upper gi bleed stable continue to monitor - as per gi bleed (3) Hyponatremia Status: Resolved Response to Treatment: Stable Discussed With: Patient Problem Specific Plan: Repeat Labs (4) Abnormal CT of the abdomen Discussed With: Patient Problem Specific Plan: Repeat Tests Problem Text: possible hepatic cysts - recommend follow up ct with contrast in 6 months (5) Afib Status: Chronic Discussed With: Patient Problem Text: rate controlled - heart rates were low - bb on hold anti-coagulation on hold as per gi bleed (6) Hypertension Status: Chronic Discussed With: Patient Problem Specific Plan: Monitor Clinically Problem Text: home meds on hold - bb, lasix, acei (7) Hyperlipidemia Status: Chronic Problem Text: continue statin Plan/VTE VTE Prophylaxis Ordered?: Yes (mechanical) Plan Diet: Advance Activity: Advance, Encourage Ambulation Therapy: PT Respiratory: Wean Oxygen Diagnostics: Repeat Labs in AM Anticipated Discharge: Home, Home With Services likely mild fluid overload causing hypoxic respiratory distress wean O2 IV lasix x 1 resume home dosage lasix in am anticipated discharge in 24 hours VS, I&O, 24H, Fishbone Vital Signs/I&O Vital Signs Date Time Temp Pulse Resp B/P (MAP) Pulse Ox O2 Delivery O2 Flow Rate FiO2 02/04/17 09:10 96 Nasal Cannula 2.0 02/04/17 06:00 98.0 84 18 145/65 (91) I&O- Last 24 Hours up to 6 AM 02/04/17 05:59 Intake Total 1380 ml Output Total 1450 ml Balance -70 ml Laboratory Data 24H LABS Laboratory Tests 2 02/04/17 06:51: Blood Urea Nitrogen 11, Creatinine 0.71, Sodium Level 132L, Potassium Level 3.9 , Chloride Level 93L, Carbon Dioxide Level 33H, Anion Gap 6L, Glomerular Filtration Rate > 60.0, Calcium Level 7.8L, Phosphorus Level 3.7#, B-Type Natriuretic Peptide 141H, Albumin 2.6L CBC/BMP Laboratory Tests 02/04/17 06:51 Red Blood Count 3.31 L, Mean Corpuscular Volume 97.2 H, Mean Corpuscular Hemoglobin 31.8, Mean Corpuscular Hemoglobin Concent 32.7, Red Cell Distribution Width 12.7, Anion Gap 6 L 02/04/17 11:59 Microbiology Microbiology 01/31/17 Blood Culture - Preliminary, Resulted No Growth after 72 hours. All specime... 4/29/17 Blood Culture - Preliminary, Resulted No Growth after 72 hours. All specime... HUBERT JOHNSON MD February 04, 2017 13:15
[2017-02-04] MEDS ORDERED: FUROSEMIDE 40 MG/4 ML VIAL (J1940) IV ONE (13:30)
--- NOTE | 2017-02-04 15:09 | REP ---
Chest two views HISTORY: Shortness of breath Comparison: 10/27/2014 A calcified granuloma is present in the right lower lobe. The left lung is clear. The cardiac silhouette is enlarged. The pulmonary vasculature is normal in appearance. The bony structure is intact. IMPRESSION: 1. Old granulomatous disease. 2. Cardiomegaly. Signed by Osei Huizar MD 02/04/2017 03:00 P
[2017-02-04 22:00] VITALS: BP 135/65
[2017-02-04 23:43] VITALS: O2SAT 92
[2017-02-05] VITALS (8 sets, daily range): BP systolic 104–129; BP diastolic 60–80; O2SAT 90–97
[2017-02-05] MEDS: SLF 3 ML SYR IV SCH ×3 (05:02→21:04)
[2017-02-05 06:58] LABS: MEAN CORPUSCULAR HEMOGLOBIN 31.9 pg (27.0-33.0); MEAN CORPUSCULAR HGB CONC 32.9 g/dl (32.0-36.5); MEAN CORPUSCULAR VOLUME 96.8 fl (80.0-96.0); RED CELL DISTRIBUTION WIDTH 12.6 % (11.5-14.5); WHITE BLOOD COUNT 6.7 K/mm3 (4.0-10.0)
[2017-02-05 07:23] LABS: ALBUMIN 2.7 GM/DL (3.2-5.2); ANION GAP 4 MEQ/L (8-16); BLOOD UREA NITROGEN 10 MG/DL (7-18); CALCIUM LEVEL 8.1 MG/DL (8.8-10.2); CARBON DIOXIDE LEVEL 36 MEQ/L (21-32); CHLORIDE LEVEL 93 MEQ/L (98-107); CREATININE FOR GFR 0.71 MG/DL (0.70-1.30); GLOMERULAR FILTRATION RATE > 60.0 (>49); GLUCOSE, FASTING 100 MG/DL (80-110); PHOSPHORUS LEVEL 3.9 MG/DL (2.5-4.9); SODIUM LEVEL 133 MEQ/L (136-145)
[2017-02-05] MEDS: LISINOPRIL 40 MG TAB PO SCH (09:08)
[2017-02-05] MEDS: PANTOPRAZOLE 40MG TAB (PROTONIX) PO SCH ×2 (09:09→21:03)
[2017-02-05] MEDS: PRAVASTATIN 10 MG TAB PO SCH (09:09)
[2017-02-05] MEDS: FUROSEMIDE 80 MG TAB PO SCH (09:09)
--- NOTE | 2017-02-05 10:55 | IPNPDOC ---
Subjective Date Seen The patient was seen on 02/05/17. Subjective Chief Complaint/HPI The patient is a 66-year-old male admitted with a reason for visit of Gi Bleed. General: Denies: ROS Unobtainable, Chills, Night Sweats, Fatigue, Malaise, Normal Appetite, Other Symptoms Constitutional: Denies: Chills, Fever, Malaise, Night Sweats, Weakness, Fatigue , Weight Loss, Lethargy, Other Eyes: Denies: Pain, Vision change, Conjunctivae inflammation, Eyelid inflammation, Redness, Other ENT: Denies: Head Aches, Ear Pain, Dysphagia, Sinus Congestion, Post Nasal Drip , Sore Throat, Epistaxis, Other Symptoms Skin: Denies: Rash, Lesions, Jaundice, Bruising, Itching, Dry, Breakdown, Nail Changes, Other Pulmonary: Denies: Dyspnea, Cough, Pleuritic Chest Pain, Other Symptoms Cardiovascular: Denies: Chest Pain, Palpitations, Orthopnea, Paroxysmal Noc. Dyspnea, Edema, Lt Headedness, Other Symptoms Gastrointestinal: Denies: Nausea, Vomiting, Abdominal Pain, Diarrhea, Constipation, Melena, Hematochezia, Other Symptoms Genitourinary: Denies: Dysuria, Frequency, Incontinence, Hematuria, Retention, Other Symptoms Objective Physical Examination General Exam: Positive: Alert, Cooperative, No Acute Distress Eye Exam: Positive: PERRLA, Conjunctiva & lids normal ENT Exam: Positive: Atraumatic, Mucous membr. moist/pink Neck Exam: Positive: Supple Chest Exam: Positive: Clear to auscultation, Normal air movement Heart Exam: Positive: Rate Normal, Irregular Rhythm Abdomen Exam: Positive: Normal bowel sounds, Soft, Other (obese), Negative: Tenderness Psych Exam: Positive: Oriented x 3 Assessment /Plan Problems (1) GI bleed Status: Acute Response to Treatment: Compensated Discussed With: Patient Problem Specific Plan: Consult Specialist, Monitor Clinically, Repeat Labs Problem Text: nonbleeding deeply cratered duodenal ulcer as per egd transition to PO protonix hold pradaxa 10-14 days advance diet to regular h/h remains stable (2) Acute blood loss anemia Status: Resolved Response to Treatment: Stable Discussed With: Patient Problem Specific Plan: Monitor Clinically, Repeat Labs Problem Text: secondary to upper gi bleed stable continue to monitor - as per gi bleed (3) Hyponatremia Status: Resolved Response to Treatment: Stable Discussed With: Patient Problem Specific Plan: Repeat Labs (4) Abnormal CT of the abdomen Discussed With: Patient Problem Specific Plan: Repeat Tests Problem Text: possible hepatic cysts - recommend follow up ct with contrast in 6 months (5) Afib Status: Chronic Discussed With: Patient Problem Text: rate controlled - heart rates were low - bb on hold anti-coagulation on hold as per gi bleed (6) Hypertension Status: Chronic Discussed With: Patient Problem Specific Plan: Monitor Clinically Problem Text: home meds on hold - bb, lasix, acei (7) Hyperlipidemia Status: Chronic Problem Text: continue statin (8) Hypoxia Status: Acute Response to Treatment: Improving Discussed With: Patient Problem Specific Plan: Monitor Clinically Problem Text: Likely secondary to volume overload. IV lasix administered yesterday, home lasix resumed today. Titrate O2 to room air as tolerated. Plan/VTE VTE Prophylaxis Ordered?: Yes (mechanical) Plan Diet: Continue Current Activity: Continue Current, Encourage Ambulation Therapy: PT Respiratory: Wean Oxygen Anticipated Discharge: Home, Home With Services Weaning off O2. Concern for gout however no history document. Med rec does not show home meds for gout. To confirm today and resume as needed. VS, I&O, 24H, Fishbone Vital Signs/I&O Vital Signs Date Time Temp Pulse Resp B/P (MAP) Pulse Ox O2 Delivery O2 Flow Rate FiO2 02/05/17 09:30 Nasal Cannula 0.5 02/05/17 09:29 92 02/05/17 08:15 97.8 72 16 104/63 (77) I&O- Last 24 Hours up to 6 AM 02/05/17 05:59 Intake Total 860 ml Output Total 700 ml Balance 160 ml Laboratory Data 24H LABS Laboratory Tests 2 02/05/17 06:38: Blood Urea Nitrogen 10, Creatinine 0.71, Sodium Level 133L, Potassium Level 4.0 , Chloride Level 93L, Carbon Dioxide Level 36H, Anion Gap 4L, Glomerular Filtration Rate > 60.0, Calcium Level 8.1L, Phosphorus Level 3.9, Albumin 2.7L CBC/BMP Laboratory Tests 02/04/17 11:59 02/05/17 06:38 Red Blood Count 3.47 L, Mean Corpuscular Volume 96.8 H, Mean Corpuscular Hemoglobin 31.9, Mean Corpuscular Hemoglobin Concent 32.9, Red Cell Distribution Width 12.6, Anion Gap 4 L Microbiology Microbiology 01/31/17 Blood Culture - Preliminary, Resulted No Growth after 72 hours. All specime... 01/31/17 Blood Culture - Preliminary, Resulted No Growth after 72 hours. All specime... HUBERT JOHNSON MD February 05, 2017 10:55
[2017-02-05] MEDS ORDERED: ALLO10TA PO (12:48)
[2017-02-05] MEDS: ALLOPURINOL 100 MG TAB PO SCH (13:11)
[2017-02-05] MEDS: ACETAMINOPHEN TAB 650MG DOSE (2X325MG) PO PRN (23:13)
[2017-02-06] MEDS: SLF 3 ML SYR IV SCH (05:04)
[2017-02-06] MEDS: ACETAMINOPHEN TAB 650MG DOSE (2X325MG) PO PRN (05:33)
[2017-02-06 06:00] VITALS: BP 122/78
[2017-02-06] MEDS: FUROSEMIDE 80 MG TAB PO SCH (08:57)
[2017-02-06] MEDS: LISINOPRIL 40 MG TAB PO SCH (08:57)
[2017-02-06] MEDS: ALLOPURINOL 100 MG TAB PO SCH (08:57)
[2017-02-06] MEDS: PRAVASTATIN 10 MG TAB PO SCH (08:57)
[2017-02-06 09:00] VITALS: O2SAT 96
[2017-02-06] MEDS: PANTOPRAZOLE 40MG TAB (PROTONIX) PO SCH (09:00)
[2017-02-06] MEDS ORDERED: PROT1TAB2 PO (10:14)
--- NOTE | 2017-02-06 10:30 | DS.PDOC ---
Discharge Summary General Date of Admission Jan 31, 2017 at 13:41 Date of Discharge 02/06/17 Specialist/Consultants Involve: JUANITA OWEN MD Discharge Summary PROCEDURES PERFORMED DURING STAY: EGD, WITH BIOPSY ADMITTING DIAGNOSES: 1. UPPER GI BLEED DISCHARGE DIAGNOSES: 1. PARTIALLY OBSTRUCTING NON-BLEEDING DEEPLY CRATERED DUODENAL ULCER 2. ACUTE BLOOD LOSS ANEMIA 3. HYPONATREMIA [address] ABD - POSSIBLE HEPATIC CYSTS 5. AFIB - ON PRADAXA 6. HTN 7. HYPERLIPIDEMIA 8. MORBID OBESITY COMPLICATIONS/CHIEF COMPLAINT: Gi Bleed. HOSPITAL COURSE: 66 yo male presents for melena. On chronic anti-coagulation with pradaxa for a-fib. He was kept NPO with IV fluids and underwent EGD by GI. Large duodenal ulcer found. Pradaxa on hold. H/H remained stable, and diet advanced. Hospital stay complicated with respiratory distress deemed secondary to fluid overload, responded well to IV lasix, and resuming his home lasix dosage. Saturated well on room air at rest and with ambulation on day of discharge. DISCHARGE MEDICATIONS: Please see below. ALLERGIES: Please see below. PHYSICAL EXAMINATION ON DISCHARGE: VITAL SIGNS: Please see below. GENERAL: NAD HEENT: NC/AT, EOMI, PERRL NECK: supple CARDIOVASCULAR EXAMINATION: +S1S2, irregularly irregular RESPIRATORY EXAMINATION: CTA B/L ABDOMINAL EXAMINATION: soft, NT, +BS, obese EXTREMITIES: no edema PSYCHIATRIC EXAMINATION: AAOx3 LABORATORY DATA: Please see below. ACTIVITY: [As tolerated]. DIET: 2 gram sodium, low fat low cholesterol DISPOSITION: Discharge home. DISCHARGE INSTRUCTIONS: 1. Follow up PCP in 3-5 days. 2. Stop Pradaxa for minimum 10 days - to resume as per follow up with PCP. Recommend alternate anti-coagulant. 3. Recommend repeat imaging of abdomen for follow up of possible hepatic cysts. 4. Recommend repeat blood work as per PCP to monitor H/H. DISCHARGE CONDITION: [Stable]. TIME SPENT ON DISCHARGE: Greater than 30 minutes. Vital Signs/I&Os Vital Signs Date Time Temp Pulse Resp B/P (MAP) Pulse Ox O2 Delivery O2 Flow Rate FiO2 02/06/17 09:00 96 Room Air 02/06/17 08:00 0.0 02/06/17 06:00 98.8 89 15 122/78 (93) 02/05/17 09:30 I&O- Last 24 Hours up to 6 AM 02/06/17 06:00 Intake Total 1350 ml Output Total 1950 ml Balance -600 ml Microbiology Microbiology 01/31/17 Blood Culture - Final, Complete NO GROWTH AFTER 5 DAYS 01/31/17 Blood Culture - Final, Complete NO GROWTH AFTER 5 DAYS Discharge Medications Scheduled Allopurinol (Allopurinol) 100 Mg Tab, 200 MG PO DAILY, (Reported) take 2 100mg tabs daily Atenolol (Atenolol) 25 Mg Tab, 25 MG PO BID, (Reported) Furosemide (Furosemide) 80 Mg Tab, 80 MG PO DAILY, (Reported) Lisinopril (Lisinopril) 40 Mg Tab, 40 MG PO DAILY, (Reported) Pantoprazole Sodium Sesquihydr (Protonix) 40 Mg Tab, 40 MG PO BID Potassium Chloride (Klor-Con M20) 20 Meq Tabcr, 40 MEQ PO DAILY, (Reported) Pravastatin Sod (Pravastatin Sodium) 10 Mg Tab, 10 MG PO QPM, (Reported) Ramipril (Ramipril) 10 Mg Cap, 10 MG PO BID, (Reported) Scheduled PRN Acetaminophen (Tylenol) 325 Mg Tab, 650 MG PO Q6H PRN for PAIN, (Reported) Allergies Coded Allergies: No Known Allergies (Verified , 04/10/03) HUBERT JOHNSON MD February 06, 2017 10:30
== END 2017-02-06 10:40 | disposition home or self-care (01) | DRG 378 ==
LOC: M ED 11:00 → M ED INP 13:41 → M PCU 17:02 → M MS5PR 02-03 21:00
PROVIDERS: ADMIT Internal Medicine; ATTEND Hospitalist
PROC: 0DB98ZX Excision of Duodenum, Via Natural or Artificial Opening Endoscopic, Diagnostic (ICD-10-PCS; principal; 2017-01-31 14:58)
DX: K92.2 Gastrointestinal hemorrhage, unspecified (principal); D62 Acute posthemorrhagic anemia; E87.1 Hypo-osmolality and hyponatremia; Z68.42 Body mass index [BMI] 45.0-49.9, adult; K26.9 Duodenal ulcer, unspecified as acute or chronic, without hemorrhage or perforation; R09.02 Hypoxemia; I48.91 Unspecified atrial fibrillation; R74.0 Nonspecific elevation of levels of transaminase and lactic acid dehydrogenase [LDH]; I10 Essential (primary) hypertension; K21.9 Gastro-esophageal reflux disease without esophagitis; E78.5 Hyperlipidemia, unspecified; E66.01 Morbid (severe) obesity due to excess calories; K76.89 Other specified diseases of liver; Z79.01 Long term (current) use of anticoagulants; Z79.899 Other long term (current) drug therapy; Z80.9 Family history of malignant neoplasm, unspecified; Z87.891 Personal history of nicotine dependence

== ENCOUNTER 2017-04-05 14:34 | Inpatient (IN) | payer OTHER ==
[~2017-04-05] VITALS: Ht 180.3 cm; Wt 166.3 kg
[~2017-04-05 14:34] MED LIST changes: +ALLO10TA PO; -AUGM875T27 PO; +AUGM875T28 PO; -FURO1TAB15 PO; +FURO80TA2 PO; -NAPR500T2 PO; +NAPR500T3 PO; +PERC5TAB12 PO; -PERC5TAB6 PO; +POTA20TA PO; -PRAV10TA PO; +PRAV10TA4 PO
[2017-04-05] MEDS ORDERED: PRAD150C PO (14:49)
[2017-04-05 15:13] LABS: MEAN CORPUSCULAR VOLUME 87.4 fl (80.0-96.0); WHITE BLOOD COUNT 5.5 K/mm3 (4.0-10.0)
[2017-04-05 15:14] LABS: ADD MANUAL DIFFER YES; DIFF SLIDE NUMBER 110; MEAN CORPUSCULAR HEMOGLOBIN 26.8 pg (27.0-33.0); MEAN CORPUSCULAR HGB CONC 30.7 g/dl (32.0-36.5); PLATELET COUNT, AUTOMATED 289 k/mm3 (150-450); RED CELL DISTRIBUTION WIDTH 15.5 % (11.5-14.5)
[2017-04-05 15:20] LABS: ABG BASE EXCESS 2.9 (-2.0-2.0); ABG HCO3 30.8 MEQ/L (22.0-26.0); ABG PARTIAL PRESSURE O2 90.7 mmHg (75.0-100.0); ABG STANDARD HCO3 27.1 MEQ/L (22.0-26.0); ABG TOTAL CO2 32.8 MEQ/L (23.0-31.0); ABG pH (ARTERIAL) 7.295 UNITS (7.350-7.450)
[2017-04-05 15:21] LABS: ABG PARTIAL PRESSURE CO2 64.8 mmHg (35.0-45.0)
[2017-04-05 15:21] LABS: INR 1.26
[2017-04-05] MEDS ORDERED: PRAV20TA2 PO (15:28)
[2017-04-05] MEDS ORDERED: POTA10TA16 PO (15:28)
[2017-04-05] MEDS ORDERED: VITA-122 PO (15:29)
[2017-04-05] MEDS ORDERED: PANT40TA2 PO (15:29)
[2017-04-05 15:34] LABS: BASOPHILS 1 % (0-4)
[2017-04-05 15:35] LABS: ANISOCYTOSIS 1+; HYPOCHROMASIA 2+
[2017-04-05 15:40] LABS: ALBUMIN 3.5 GM/DL (3.2-5.2); ALBUMIN/GLOBULIN RATIO 1.09 (1.00-1.93); ALKALINE PHOSPHATASE 64 U/L (45-117); ALT/SGPT 10 U/L (12-78); ANION GAP 7 MEQ/L (8-16); AST/SGOT 10 U/L (15-37); BILIRUBIN,DIRECT 0.1 MG/DL (0.0-0.2); BILIRUBIN,TOTAL 0.5 MG/DL (0.2-1.0); BLOOD UREA NITROGEN 7 MG/DL (7-18); CALCIUM LEVEL 8.1 MG/DL (8.8-10.2); CARBON DIOXIDE LEVEL 30 MEQ/L (21-32); CHLORIDE LEVEL 87 MEQ/L (98-107); CREATININE FOR GFR 0.88 MG/DL (0.70-1.30); GLOMERULAR FILTRATION RATE > 60.0 (>49); GLUCOSE, FASTING 106 MG/DL (80-110); SODIUM LEVEL 124 MEQ/L (136-145); TOTAL PROTEIN 6.7 GM/DL (6.4-8.2)
[2017-04-05] MEDS ORDERED: FUROSEMIDE 40 MG/4 ML VIAL (J1940) IV ONE (15:45)
--- NOTE | 2017-04-05 15:59 | REP ---
Clinical: Cough and dyspnea. Comparison: 02/04/2017. Findings: Stable cardiomegaly. Lung tamayo demonstrate stable chronic changes including scattered calcified granulomata. No focal consolidation, obvious effusion or pneumothorax. Skeletal structures intact. Impression: Stable cardiomegaly and chronic changes. No obvious acute cardiopulmonary process. Signed by Avery Case MD 04/05/2017 03:51 P
--- NOTE | 2017-04-05 16:14 | REP ---
Clinical: Bilateral pain and swelling . Technique: Stiles scale and color Doppler evaluation using linear high frequency transducer. Findings: Ultrasound examination of the right and left lower extremity deep venous structures from the common femoral vein to the popliteal vein demonstrates normal compressibility flow and wave patterns in response to respiration and augmentation. There is no evidence for deep venous thrombosis. Bilateral stallworth's cysts are identified measuring 9.3 x 2.7 x 3.3 cm on the right and 5.7 x 1.6 x 3.0 cm on the left. Impression: No evidence for deep venous thrombosis bilateral lower extremities. Bilateral Stallworth's cysts. Signed by Avery Case MD 04/05/2017 04:05 P
[2017-04-05] MEDS ORDERED: ISOVUE-370 76% 100ML VIAL (Q9967) As Ordered ONE (16:22)
[2017-04-05 17:02] LABS: ABG HCO3 29.8 MEQ/L (22.0-26.0); ABG PARTIAL PRESSURE CO2 70.2 mmHg (35.0-45.0); ABG PARTIAL PRESSURE O2 83.4 mmHg (75.0-100.0); ABG STANDARD HCO3 25.3 MEQ/L (22.0-26.0); ABG pH (ARTERIAL) 7.246 UNITS (7.350-7.450)
--- NOTE | 2017-04-05 17:04 | REP ---
Clinical: Hypoxia and shortness of breath rule out pulmonary embolus. Technique: Axial contrast enhanced images from the thoracic inlet to the upper abdomen using 100 ml Isovue 370 intravenous contrast material with multiplanar re-formations. Findings: Suboptimal enhancement of the pulmonary vasculature may be secondary to technique and body habitus. No obvious main or first order pulmonary arterial emboli are identified. No definite distal pulmonary embolus noted. Cardiomegaly is appreciated with atherosclerotic changes to the thoracic aorta and coronary arteries as well as trace pericardial fluid and findings to suggest mild pulmonary vascular congestion including subtle right perihilar ground-glass opacities. No adenopathy. Calcified granuloma in the right middle lobe appears chronic. Surrounding musculoskeletal structures without focal osseous abnormality. Limited evaluation of the upper abdomen demonstrates bilateral perinephric stranding with possible hydronephrosis. Impression: 1. Limited examination without obvious pulmonary embolus. 2. Cardiomegaly with mild pulmonary vascular congestion including small pericardial effusion. 3. No focal consolidation or effusion. 4. Limited upper abdomen with bilateral perinephric stranding and possible hydronephrosis. Signed by Avery Case MD 04/05/2017 04:55 P
[2017-04-05 17:21] LABS: MAGNESIUM LEVEL 1.9 MG/DL (1.8-2.4); PHOSPHORUS LEVEL 3.8 MG/DL (2.5-4.9); THYROXINE (T4) 5.9 UG/DL (4.5-12.0)
[2017-04-05 17:32] LABS: T UPTAKE 35 % (33-40)
[2017-04-05 19:26] LABS: ABG BASE EXCESS 5.4 (-2.0-2.0); ABG HCO3 32.8 MEQ/L (22.0-26.0); ABG PARTIAL PRESSURE CO2 62.3 mmHg (35.0-45.0); ABG PARTIAL PRESSURE O2 95.3 mmHg (75.0-100.0); ABG STANDARD HCO3 29.3 MEQ/L (22.0-26.0); ABG TOTAL CO2 34.7 MEQ/L (23.0-31.0); ABG pH (ARTERIAL) 7.339 UNITS (7.350-7.450)
[2017-04-05] MEDS ORDERED: LISINOPRIL 10 MG TAB PO ONE (19:45)
[2017-04-05] MEDS: FUROSEMIDE 100 MG/10 ML VIAL (J1940) IV SCH (21:00)
[2017-04-05 21:47] VITALS: BP 133/92
[2017-04-05] MEDS: DABIGATRAN ETEXILATE 75 MG CAP (PRADAXA) PO SCH (21:54)
[2017-04-05 22:00] VITALS: BP 133/92
[2017-04-05] MEDS ORDERED: HEPARIN SOD (PORCINE) 5000 UNITS/ML VIAL SC SCH (22:00)
[2017-04-05 22:10] VITALS: O2SAT 100
[2017-04-05] MEDS: PRAVASTATIN 10 MG TAB PO SCH (22:17)
[2017-04-05 22:41] LABS: ANION GAP 3 MEQ/L (8-16); BLOOD UREA NITROGEN 7 MG/DL (7-18); CALCIUM LEVEL 9.1 MG/DL (8.8-10.2); CARBON DIOXIDE LEVEL 37 MEQ/L (21-32); CHLORIDE LEVEL 87 MEQ/L (98-107); CREATININE FOR GFR 0.96 MG/DL (0.70-1.30); GLOMERULAR FILTRATION RATE > 60.0 (>49); GLUCOSE, FASTING 96 MG/DL (80-110); POTASSIUM SERUM 4.6 MEQ/L (3.5-5.1); SODIUM LEVEL 127 MEQ/L (136-145)
[2017-04-06] VITALS (14 sets, daily range): BP systolic 76–137; BP diastolic 46–86; O2SAT 96–100
[2017-04-06 04:44] LABS: MEAN CORPUSCULAR HEMOGLOBIN 25.8 pg (27.0-33.0); MEAN CORPUSCULAR HGB CONC 29.3 g/dl (32.0-36.5); MEAN CORPUSCULAR VOLUME 88.1 fl (80.0-96.0); RED CELL DISTRIBUTION WIDTH 15.8 % (11.5-14.5); WHITE BLOOD COUNT 6.3 K/mm3 (4.0-10.0)
[2017-04-06 05:01] LABS: ANION GAP 6 MEQ/L (8-16); BLOOD UREA NITROGEN 7 MG/DL (7-18); CALCIUM LEVEL 9.3 MG/DL (8.8-10.2); CARBON DIOXIDE LEVEL 35 MEQ/L (21-32); CHLORIDE LEVEL 84 MEQ/L (98-107); CREATININE FOR GFR 1.01 MG/DL (0.70-1.30); GLOMERULAR FILTRATION RATE > 60.0 (>49); GLUCOSE, FASTING 77 MG/DL (80-110); MAGNESIUM LEVEL 2.1 MG/DL (1.8-2.4); POTASSIUM SERUM 4.2 MEQ/L (3.5-5.1); SODIUM LEVEL 125 MEQ/L (136-145)
--- NOTE | 2017-04-06 05:28 | HPE ---
CRITICAL CARE/HISTORY AND PHYSICAL: DATE OF ADMISSION: 04/05/2017 Critical care time was 1 hour and 28 minutes. This excludes all procedures. I was called to the emergency room for hypoxic hypercarbic failure in a 66-year-old gentleman who has known hypertension, atrial fibrillation and congestive heart failure. He was on bilevel noninvasive therapy. Therefore, his history was difficult to obtain. However, he states he was not having any chest discomfort, had progressive shortness of breath to the point where he felt he could not breathe today presented to the emergency room. On arrival to the emergency room, he had oxygen saturations in the low 90s on 4 liters. Prior to that it was in the low 80s. He states he does not weigh himself on a daily basis, is unaware of any weight gain. He has not have any chest discomfort, palpitations. He just feels short of breath. He is orthopneic. He has significant edema. No calf pain. Bilateral Doppler ultrasounds performed on his lower extremities in the emergency room. He is tolerating Bilevel positive airway pressure (BiPAP) well. He does not have a BiPAP machine at home. He states he has not been worked up for sleep apnea. [facility] However, he states his turbine assembler is Dr. Garcia. Dr. Garcia states that he does not seem too frequently. The last time was approximately 4 months ago. I had a discussion with Dr. Gacria, who will see him in consultation. The last echocardiogram data that Dr. Garcia had available was an estimated ejection fraction of 50% and that was in 2011. He has had no recent echocardiograms that he is aware of. On my way of arrival, the patient is in atrial fibrillation (AFib) with frequent premature ventricular contractions (PVCs). He has a left intraventricular conduction delay on his EKG, but no acute ST changes. He has had unremarkable cardiac enzymes. Past medical history obtained from the chart. He has a history of hypertension, atrial fibrillation on chronic anticoagulation with Pradaxa, history of cast perforated gastric ulcer, gastroesophageal reflux, hyperlipidemia, morbid obesity, suspected underlying obstructive sleep apnea without formal evaluation. Prior history of a surgery on his leg in 1987, unable to quantify. As far as his medications at home, he states he is unable to tell me what he is taking currently. He states he gave a list to the nurse. The list I have includes: - Tylenol - allopurinol 200 mg by mouth daily - atenolol 25 mg by mouth daily - Lasix 80 mg by mouth twice a day - lisinopril 40 mg by mouth daily - Protonix 40 mg by mouth daily - potassium 40 mEq by mouth daily - pravastatin 10 mg by mouth nightly ALLERGIES: NO KNOWN DRUG ALLERGIES (NKDA). SOCIAL HISTORY: Again, difficult to obtain. He states he is not , that he does not have a healthcare proxy but he states either his brother Ishmael rOtiz or Johnson could help make decisions for him if he is unable to. He has a prior history of smoking. No significant exposures. REVIEW OF SYSTEMS: Difficult to obtain, again because of his respiratory status and ventilation. He denies change in weights, but does not perform daily weights. No fevers, chills. No chest discomfort. No nausea, vomiting. No cough or recent history of respiratory infection. All other review of systems could not be obtained due to the severity of his shortness of breath and the fact that he requires ventilation. FAMILY HISTORY: Unobtainable. PHYSICAL EXAMINATION: Temperature is 97.8. Pulse is 67. Respiratory rate is 18. Blood pressure is 116/70. Oxygen saturation is 93% on bilevel. Currently, he was on 20/03 with an FiO2 of 0.50. Because of his continued hypercarbia, I increased his IPAP to 20 and EPAP to 10. This gave him tidal volumes in the low 400s. Initially, he was getting low to mid 300 tidal volumes on the 16/6. In general, patient is awake, able to talk through his mask. HEENT: Sclerae are clear and anicteric. Pupils equal, round, and reactive to light. Mucous membranes are moist. Tongue is midline. Neck is supple. No tracheal deviation. I do estimate elevated jugular venous pulse (JVP), although it is difficult due to his body habitus. No thyromegaly. Cardiac: Distant S1, S2. Without audible murmur, rub or gallop. There is elevated JVP. There systemic edema up to his mid thigh. Pulmonary: Decreased breath sounds throughout. Poor chest expansion. No rhonchi or wheeze. Abdomen is obese with a well-healed midline incision with a reducible umbilical hernia. His abdomen is nontender. I am unable to palpate any discernible hepatosplenomegaly. Although, his stomach is slightly distended and obese. It is tympanic to percussion. Extremities: No significant hand or arm edema. However, significant leg edema to the mid thigh. Skin is pale without rash, jaundice or bruising. Musculoskeletal: No joint effusion. No muscle loss or muscle weakness. Neurologic: No unilateral weakness, tremor or evidence of seizure activity. EKG shows AFib with frequent PVCs, left intraventricular conduction delay. No significant change compared priors. CT angiography shows decreased chest expansion, significant cardiomegaly, vascular congestion, small pericardial effusion and a granuloma in the right middle lobe. There is mention of hydronephrosis with bilateral perinephric stranding. Chest x-ray simply shows significant cardiomegaly to the point where there is very little lung field seen. Last arterial blood gas shows a pH of 7.25, pCO2 of 70.2 with a pO2 of 83.4. Bilateral lower extremity Dopplers were negative. Sodium is low at 124, potassium is 5.0, chloride is 87, bicarbonate is 30, BUN of 7, creatinine of 0.88 with a glucose of 106. White blood cell count is 5.5 with a hemoglobin 11.1, hematocrit of 36.3 with a platelet count of 289, neutrophilia of 63% monocytosis of 14%, lactate was low at 1.8, calcium 8.1. BNP was 479. TSH was 1.86. Free T4 of 2.1. INR is 1.26. IMPRESSION: 1. Acute hypercarbic hypoxic respiratory failure likely secondary to a combination of obesity, hypoventilation with concurrent pulmonary edema. He has significant cardiomegaly. I am treating him for decompensated acute heart failure. Will obtain an echocardiogram and continue diuresis. I am continuing his home dose of atenolol as he is currently well rate controlled. Will continue lisinopril and monitor his BUN and creatinine. I have consulted his turbine assembler to follow along. 2. Hyponatremia likely secondary to decompensated heart failure. No evidence of hypothyroidism at this point in time. 3. Mild hyperkalemia. Will continue to monitor. I believe this will decrease as he is diuresed. Will recheck labs this evening. 4. Obesity, hypoventilation suspected. He needs to be worked up for at least obstructive sleep apnea. I believe his untreated sleep apnea may be contributing to his decompensated heart failure. 5. History of atrial fibrillation, currently rate controlled. Will continue atenolol as mentioned above. Continue Pradaxa for CVA prophylaxis. 6. History of perforated gastric ulcer. The patient will be on Protonix IV until he is able to tolerate oral. 7. Hyperlipidemia. Will continue pravastatin. 8. Hypertension. Blood pressure adequate control currently. 9. Advanced directives. The patient wishes to remain FULL CODE. As mentioned above, he identifies all three of his brothers as his combined healthcare proxy. I have explained to him it will be best if he chooses one person and to think about who that person may be. 10. Hydronephrosis. On CT, patient has excellent urine output over a liter so far. Will obtain bilateral ultrasounds of the kidneys to ensure no obstruction. However, he is showing no signs of sepsis. He states he has no flank pain. No prior history of nephrolithiasis. He is refusing Rose at this point in time. He has good urine output. If urine output decreases, will consider placing Rose. The patient's prognosis is guarded due to the severity of his congestive heart failure, hypoxia and hypercarbia. He will remain on bilevel therapy, nothing by mouth to avoid aspiration. Critical care time as mentioned above. This excludes all procedures.
[2017-04-06 06:39] LABS: ABG BASE EXCESS 7.4 (-2.0-2.0); ABG HCO3 32.6 MEQ/L (22.0-26.0); ABG PARTIAL PRESSURE O2 106.7 mmHg (75.0-100.0); ABG STANDARD HCO3 31.2 MEQ/L (22.0-26.0); ABG TOTAL CO2 34.1 MEQ/L (23.0-31.0); ABG pH (ARTERIAL) 7.441 UNITS (7.350-7.450)
--- NOTE | 2017-04-06 08:29 | REP ---
Clinical: Pulmonary edema. Comparison: 04/05/2017. Findings: Marked cardiomegaly remains stable. Lung tamayo are clear and without obvious consolidation, effusion, or pneumothorax. Skeletal structures are intact. Impression: Stable chest x-ray. Cardiomegaly. No focal consolidation. Signed by Avery Case MD 04/06/2017 08:20 A
[2017-04-06] MEDS: ALLOPURINOL 100 MG TAB PO SCH (08:54)
[2017-04-06] MEDS: DABIGATRAN ETEXILATE 75 MG CAP (PRADAXA) PO SCH ×2 (08:54→21:18)
[2017-04-06] MEDS: FUROSEMIDE 100 MG/10 ML VIAL (J1940) IV SCH (08:55)
[2017-04-06] MEDS: LISINOPRIL 40 MG TAB PO SCH (08:56)
[2017-04-06] MEDS ORDERED: PANTOPRAZOLE 40MG INJ (PROTONIX) (C9113) IV SCH (09:00)
[2017-04-06] MEDS ORDERED: ATENOLOL 25 MG TAB PO SCH (09:00)
[2017-04-06] MEDS: VITAMIN D 1,000 INTERNATIONAL UNITS TABLET PO SCH (12:19)
--- NOTE | 2017-04-06 12:34 | IPN ---
DATE OF SERVICE: 04/06/2017 Time the patient was seen was at 10:05. The patient has been seen and examined at bedside. No acute events overnight. Desaturations, bradycardia in the high 30s. The patient otherwise stated that he is feeling better. Denies any chest pain, trouble breathing, abdominal pains, nausea, vomiting, diarrhea, or constipation. Denies any other current new complaints. PHYSICAL EXAMINATION: VITAL SIGNS: Temperature was 98.2, pulse 55, respiration 20, blood pressure 122/68, oxygen was saturating at 96% on 3 liters of nasal cannula oxygen, with a respiratory rate of 22. General: The patient is a morbidly obese elderly male who was alert, awake, oriented times three. Does not appear to be in distress. Resting comfortably in bed with head elevated at 30 degrees. HEENT: Normocephalic, atraumatic. Extraocular motor intact. Mucosa moist. NECK: Supple. No neck lymphadenopathy. CARDIOVASCULAR: Irregularly irregular with 2/6 systolic heart murmur. There were also jugular venous distention (JVD) to the jawline. LUNGS: There were slight bilateral basilar rales. ABDOMEN: Positive bowel sounds. Soft, nontender, nondistended. No peritoneal signs. No ecchymosis. EXTREMITIES: 1+ pitting edema in bilateral lower extremities extending below the knee. SKIN: Warm and dry. NEUROLOGIC: Cranial nerves II-XII intact. No focal neurologic deficit. LABORATORIES: WBC 6.3, hemoglobin 11.5, hematocrit 39.4, with a platelet count of 28.1, with MCV of 88.1. Sodium 125 which was low, potassium 4.4, chloride 84, bicarbonate 35, anion gap 6, BUN 7, creatinine 1.01, GFR greater than 60, fasting glucose was low at 77, calcium 9.3, magnesium 2.1. The patient's arterial blood gas (ABG) shows pH 7.44, PCO2 49, pO2 106.7, oxygen saturating 98.2%, with a base excess of 7.4. Blood culture times two, result is pending. The patient had a portable chest x-ray this morning. It shows cardiomegaly and no focal consolidation. ASSESSMENT AND PLAN: 1. Acute hypercarbic hypoxic respiratory failure likely secondary to a combination of obesity, hypoventilation, pulmonary edema. CT and the chest x- ray does show significant cardiomegaly. Given the patient's lower extremity edema and JVD, the patient likely has decompensated acute heart failure. We have been treating with diuresis. Echocardiogram has been ordered. Will follow. The patient was also bradycardic. Cardiology has been consulted. The patient's beta delmi has been on hold. 2. Hyponatremia, likely secondary to decompensated heart failure. 3. Mild hyperkalemia. Continue to monitor. 4. Bradycardia. HR was in high 30s. The patient was on atenolol, which has been on hold by cardiology. Will continue to monitor. 5. History of atrial fibrillation, was rate controlled. Beta delmi has been on hold. Continue Pradaxa. 6. History of perforated gastric ulcer. Continue Protonix. 7. Hyperlipidemia. Continue pravastatin. 8. Hypertension. Continue to monitor. Continue Lasix. ADVANCED DIRECTIVES: The patient is currently FULL CODE. DISPOSITION: Will likely transfer the patient to hospitalist today, and the patient will be downgraded, as well. The patient has been discussed with attending doctor, Dr. Joshua. My preceptor for this patient encounter was Karl Joshua DO. The preceptor was physically present in the room during the encounter and was fully available. As needed, all aspects of the patient interview, examination, medical decision making process, and medical care plan development were reviewed and approved by the preceptor. The preceptor is aware and concurs with the plan as stated in the body of this note and will attest to such by her cosignature. I,Karl Joshua, conducted and independent exam and history and agree with the assessment and plan as outlined above. DEMETRIS
--- NOTE | 2017-04-06 17:56 | REP ---
Clinical: Possible hydronephrosis. Technique: Real time simms scale ultrasound examination of the kidneys and bladder with curved array transducer. Findings: The bilateral kidneys are normal in contour, size, echogenicity, and reniform shape without hydronephrosis, nephrolithiasis, cystic or renal mass lesion. Right kidney measures 11.0 x 5.8 x 6.9 cm. Left kidney measures 11.3 x 6.0 x 6.6 cm. The bladder is distended but grossly normal in appearance and currently measures 21.8 x 11.5 x 8.7 cm. Impression: Normal bilateral kidneys without hydronephrosis. Moderate distension to the bladder without focal abnormality. Signed by Avery Case MD 04/06/2017 05:48 P
--- NOTE | 2017-04-06 19:58 | ECHO ---
DATE OF PROCEDURE: 04/06/2017 REFERRING PHYSICIAN: Karl Joshua DO INDICATION: Congestive heart failure HEIGHT: 180 cm WEIGHT: 159 kg DIMENSIONS: IVS: 1.3 LV: 5.8 LVPW: 1.3 LA: 4.5 Aorta: 3.2 FINDINGS: The study is of rather limited technical quality corresponding to patient's body habitus. Left ventricle is mildly enlarged, but grossly normally contractile. I estimate ejection fraction (EF) around 60%. I certainly could have easily missed wall motion abnormality. Right ventricle is dilated and hypokinetic. Both atria are severely enlarged. Aortic valve was poorly visualized. There are some sclerotic abnormalities, but I cannot comment on details of its anatomy. Mitral valve also exhibits degenerative abnormalities with mitral annular calcifications, but leaflet mobility seems preserved. Tricuspid valve appears normal. Pulmonic valve was not seen. No pericardial effusion is noted. Inferior vena cava is dilated but collapses with respiration indicative of likely just mildly elevated central venous pressure. Aortic root is normal. Aortic arch and abdominal aorta were not well seen. Doppler interrogation of aortic valve reveals no insufficiency and mild stenosis. Mean gradient was only 12 mmHg. There is no significant mitral stenosis or insufficiency and trace tricuspid insufficiency. Calculated pulmonary artery pressure is in 40s based on poor quality of tricuspid regurgitation (TR) jet. Pulmonic valve is functionally competent. Evaluation of diastolic function is inconclusive due to underlying atrial fibrillation with controlled rate. CONCLUSIONS: 1. Study is of limited technical quality corresponding to patient's body habitus. 2. Mildly dilated left ventricle with mild LVH and overall preserved LV systolic function. 3. Mild aortic stenosis. 4. At least mildly elevated central venous pressure. 5. At least moderate pulmonary hypertension. 6. Dilated right ventricle. COMMENTS: Subacute bacterial endocarditis (SBE) prophylaxis is not recommended. Overall study consistent with predominantly right-sided congestive heart failure.
--- NOTE | 2017-04-06 20:25 | CR ---
DATE OF CONSULTATION: 04/06/2017 REFERRING PHYSICIAN: Dr. Joshua INDICATION: Respiratory failure, atrial fibrillation, congestive heart failure. HISTORY OF PRESENT ILLNESS: Mr. Gross is a 66-year-old man who was admitted to [facility] intensive care unit last night for hypercarbic respiratory failure. He was taken care of by Dr. Joshua and started on treatment with continuous positive airway pressure (C-PAP). He was able to tolerate it overnight and this morning he tells me he feels a little bit better. It appears that he has been short of breath for a very long period of time, but it got markedly worse in the last few weeks. He believes that the deterioration has been gradual and not sudden. He believes that in the last three or four months since his last office visit, gained approximately 20 or 30 pounds of weight, but he does not weigh himself consistently. He denies any chest discomfort. There has been no dizziness or near syncope, but the dyspnea reached the point that he had to look for medical attention. On the original evaluation he was clearly hypercarbic, but his vital signs were otherwise reasonably well-controlled. Chest x-ray revealed marked cardiomegaly and vascular distribution. He was given a high dose of IV furosemide that led to favorable diuretic response. This morning he feels a little bit better but not much. PAST MEDICAL HISTORY 1. Chronic atrial fibrillation since at least 2006. He has been rate controlled on 50 mg of atenolol daily and chronically anticoagulated with Pradaxa 2. Hypertension. 3. Morbid obesity. 4. Gout. 5. Patient does not have any established history of coronary artery disease. His only evaluation, to the best of my knowledge, was a nuclear stress test in August 2008 that revealed no ischemia or infarction. Left ventricle ejection fraction was estimated around 50%. Last evaluation of systolic function was in January 2012. Echocardiogram then revealed dilated both right and left ventricles no valvular disease, and ejection fraction (EF) was estimated around 50%. SURGICAL HISTORY: 1. Right ankle surgery. 2. Pyloric ulcer repair in 2014. OUTPATIENT MEDICATIONS: - Altace 10 mg a day - atenolol 25 twice a day - calcium - Lasix 80 mg a day - potassium, 220 mEq a day - naproxen 500 mg twice a day as needed for pain - Pradaxa 150 mg twice a day - pravastatin 10 mg daily FAMILY HISTORY: Father has a history of hypertension and his mother of cancer. SOCIAL HISTORY: The patient is disabled, and lives alone. He does not smoke, quit in 1987. There is history of alcohol use, but he quit in 2011. REVIEW OF SYSTEMS: He denies recent fever, chills, nausea, vomiting and diarrhea, and there has been no chest pain, palpitations, dizziness and near/syncope. He does recall abdominal bloating. He does recall peripheral edema, which has been relatively mild. Chronic joint pain is unchanged. He does admit to recent weight change as per history of present illness (HPI). Denies any bleeding issues. PHYSICAL EXAMINATION: Mr. Gross is an elderly, morbidly obese man. He does not appear significantly changed by appearance compared to when we saw him last on 12/20/2015. Blood pressure was documented as 118/70, heart rate has been in 60s, but review of telemetry strips reveals bradycardia at night, as low as in low 30s. He is afebrile. Saturation is 95-100% on 30% FiO2 and bilevel positive airway pressure (BiPAP). His jugular venous pulse (JVP) is elevated at least 4 or 5 cm above clavicle. Lungs are relatively clear to auscultation, but the examination is limited by his large size. I do not appreciate any wheezing or crackles. Air movement is good. Heart exam reveals irregularly irregular rhythm, muffled heart sounds. Precordial impulse is difficult to palpate. There is a faint murmur at the apex. I do not appreciate any gallop. Abdomen is very obese. Abdominal exam reveals distended abdomen, but I am unable to estimate size of liver and spleen. There is about 1+ peripheral edema to mid shins. Neurologically, he is alert. He responds appropriately and I do not appreciate any focal signs. LABORATORY: Basic metabolic panel: Potassium 4.2, sodium 125, BUN 7, creatinine 1, glucose 77, magnesium is 2.1. Two sets of cardiac enzymes have been negative. Thyroid stimulating hormone (TSH) is 1.8. Brain natriuretic peptide (BNP) was 479. Complete blood count (CBC) reveals hemoglobin 11.5, hematocrit 39, platelet count 281,000, WBC 6.3. INR was 1.3. Chest x-ray reveals gross cardiomegaly, but it is a portable film with not completely satisfactory positioning. I do not appreciate any convincing evidence for congestive heart failure. CT angiography of the chest was poor quality corresponding to his body habitus and again shows obvious cardiomegaly with small pericardial effusion. No evidence for pulmonary embolism and no pleural effusions. He had hour renal ultrasound because the CT scan arose some suspicion for hydronephrosis. That do did not reveal any evidence of such. Electrocardiogram (ECG) reveals presence of atrial fibrillation with controlled rate and right bundle branch block morphology. ASSESSMENT/PLAN: Mr. Gross is a 66-year-old man who has chronic atrial fibrillation that has been reasonably well rate-controlled, morbid obesity and very likely sleep apnea that has not been treated. It was to a great degree due to his reluctance to undergo further evaluation, I suspect mostly due to financial reasons. At this point, I certainly appreciate Dr. Joshua involvement. I believe that with ongoing respiratory support he will likely get better. In the interim, we will continue diuretics. I am going to leave him on Lasix 100 mg twice a day as is ordered. So far the diuretic response has been favorable. An echocardiogram is pending. I do not foresee that he will have a hemodynamically significant pericardial effusion. As far as his heart rate is concerned, he has been quite bradycardic and I am going to discontinue atenolol completely. It is a very long-acting medication and I am concerned about worsening bradycardia. If, by any chance he gets too tachycardic, please reinstitute the atenolol in a reduced dose. I will sign the patient off to Dr. Varghese, so please contact him if there are any problems tomorrow. Otherwise, I will be back on Thursday. DEMETRIS
[2017-04-06] MEDS ORDERED: SLF 3 ML SYR IV PRN (20:30)
[2017-04-06] MEDS: PRAVASTATIN 10 MG TAB PO SCH (21:19)
[2017-04-06] MEDS: SLF 3 ML SYR IV SCH (21:19)
[2017-04-07 04:45] VITALS: BP 137/92
[2017-04-07 05:50] LABS: MEAN CORPUSCULAR HEMOGLOBIN 26.2 pg (27.0-33.0); MEAN CORPUSCULAR HGB CONC 30.2 g/dl (32.0-36.5); MEAN CORPUSCULAR VOLUME 86.7 fl (80.0-96.0); RED CELL DISTRIBUTION WIDTH 15.9 % (11.5-14.5); WHITE BLOOD COUNT 5.7 K/mm3 (4.0-10.0)
[2017-04-07 06:01] LABS: ANION GAP 8 MEQ/L (8-16); BLOOD UREA NITROGEN 11 MG/DL (7-18); CALCIUM LEVEL 8.6 MG/DL (8.8-10.2); CARBON DIOXIDE LEVEL 35 MEQ/L (21-32); CHLORIDE LEVEL 87 MEQ/L (98-107); CREATININE FOR GFR 0.96 MG/DL (0.70-1.30); GLOMERULAR FILTRATION RATE > 60.0 (>49); GLUCOSE, FASTING 90 MG/DL (80-110); MAGNESIUM LEVEL 2.1 MG/DL (1.8-2.4); POTASSIUM SERUM 4.1 MEQ/L (3.5-5.1); SODIUM LEVEL 130 MEQ/L (136-145)
[2017-04-07 06:10] LABS: ABG BASE EXCESS 10.8 (-2.0-2.0); ABG HCO3 38.6 MEQ/L (22.0-26.0); ABG PARTIAL PRESSURE O2 94.1 mmHg (75.0-100.0); ABG STANDARD HCO3 34.5 MEQ/L (22.0-26.0); ABG TOTAL CO2 40.8 MEQ/L (23.0-31.0); ABG pH (ARTERIAL) 7.359 UNITS (7.350-7.450)
[2017-04-07 06:13] LABS: ABG PARTIAL PRESSURE CO2 70.1 mmHg (35.0-45.0)
[2017-04-07] MEDS: SLF 3 ML SYR IV SCH ×3 (06:21→20:47)
--- NOTE | 2017-04-07 07:17 | ECGEPIP ---
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
--- NOTE | 2017-04-07 07:57 | REP ---
Clinical: Hypoxic respiratory failure. Pulmonary edema . Comparison: 04/06/2017 . Findings: The mediastinum and cardiac silhouette are stable and cardiomegaly is unchanged. The lung tamayo are stable and without obvious acute consolidation, effusion, or pneumothorax. Skeletal structures are intact. Impression: Stable chest x-ray. Stable cardiomegaly. No obvious acute cardiopulmonary process identified. Signed by Avery Case MD 04/07/2017 07:48 A
[2017-04-07 08:00] VITALS: BP 92/61
[2017-04-07] MEDS ORDERED: FUROSEMIDE 80 MG TAB PO SCH (09:00)
[2017-04-07] MEDS: ALLOPURINOL 100 MG TAB PO SCH (09:10)
[2017-04-07] MEDS: LISINOPRIL 40 MG TAB PO SCH (09:10)
[2017-04-07] MEDS: VITAMIN D 1,000 INTERNATIONAL UNITS TABLET PO SCH (09:10)
[2017-04-07] MEDS: PANTOPRAZOLE 40MG TAB (PROTONIX) PO SCH ×2 (09:10→20:46)
[2017-04-07] MEDS: DABIGATRAN ETEXILATE 75 MG CAP (PRADAXA) PO SCH ×2 (09:15→20:46)
[2017-04-07 12:00] VITALS: BP 109/58
--- NOTE | 2017-04-07 12:39 | IPN ---
DATE OF EXAMINATION: 04/07/2017 SUBJECTIVE: This morning the patient tells me that he is feeling well. He is awake and alert, oriented times three. He is oriented to situation as well. He did not have any complaints. He tells me that his shortness of breath is significantly better. OBJECTIVE: VITAL SIGNS: Temperature 96.4, pulse 87, respiratory rate 18, blood pressure (BP) 92/61 currently on 3 liters nasal cannula. GENERAL: He is an elderly, morbidly obese, man sitting in bed, awake. He does not appear to be in acute distress. HEENT: He has an enlarged neck. Moist mucous membranes. Difficult to assess for any elevation in his jugular venous pulse (JVP). Although, I do feel I appreciate some there. CARDIOVASCULAR EXAM: S1, S2, regular. RESPIRATORY EXAM: Distant. ABDOMINAL EXAM: Is grossly obese. EXTREMITIES: There is 1+ edema bilaterally. LABORATORY STUDIES: WBC 5.7, hemoglobin 11, hematocrit 36.5, platelet count 278. Chemistry panel: Sodium 130, potassium 4.1, chloride 87, bicarbonate 35, BUN 11 , creatinine 0.9. 2 unit blood gas this morning reveals a pH of 7.3, pCO2 of 70, pO2 of 94.1. Patient has had two sets of cardiac enzymes, which are negative. TSH was within normal limits. Normal lactic acid. Microbiology thus far all negative. He did have a chest x-ray this morning, which revealed no obvious acute cardiopulmonary process. A renal ultrasound revealed normal bilateral kidneys without hydronephrosis. He did have a CT angiography of the chest done 04/05/2017, which revealed mild pulmonary vascular congestion, including small pericardial effusion. No focal consolidation or effusion. She did have an echocardiogram, which revealed mildly dilated left ventricle with mild left ventricular hypertrophy (LVH), preserved systolic function, mildly elevated central venous pressure, moderate pulmonary hypertension, dilated right ventricle. ASSESSMENT AND PLAN: This is a 66-year-old man with what appears to be decompensated diastolic congestive heart failure and cor pulmonale complicated by previously undiagnosed obstructive sleep apnea, likely obesity hypoventilation syndrome presenting with acute hypercarbic respiratory failure. PROBLEMS: 1. Acute hypercarbic respiratory failure. Patient does appear to be improving with volume optimization and agree with Dr. Garcia. For the time being we will continue with Lasix 100 mg IV twice a day. Monitor his intake and output, daily weights and electrolytes. He does appear to have some hypervolemic hyponatremia , which is improving with the diuresis. We will continue to his monitor his electrolytes and replete as necessary. Dr. Garcia's help was greatly appreciate. His respiratory failure is markedly improved. He is still mildly hypoxic likely related to some remaining pulmonary edema. 2. Obstructive sleep apnea likely, although no formal diagnosis. Dr. Joshua' help was greatly appreciated. This is likely the cause for his right failure and cor pulmonale. Extensive time was spent counseling the patient at bedside on the necessity of wearing pressure therapy at night. He will need a formal sleep study and pulmonary followup. 3. Bradycardia. The patient's atenolol has been stopped. Also, since wearing BiPAP at night, he has not has had any episodes. We will continue to monitor for now. Should he become tachycardic, Dr. Garcia has recommended that we restart his atenolol at a lower dose. 4. Obesity hypoventilation syndrome (OHS). This patient likely suffers from Pickwickian syndrome. Dr. Joshua' help has been appreciated. He will benefit from further outpatient pulmonary followup. His obesity is complicating care. 5. Atrial fibrillation. He is anticoagulated with Pradaxa. He is rate controlled at this time without agents as outline above. 6. History of gastric ulcer. He is on a proton pump inhibitor (PPI). 7. Hypertension. He is on lisinopril. He is actually being diuresed. He is not hypertensive. 8. Dyslipidemia. He is on pravastatin. 9. Gout. He is on allopurinol. 10. Vitamin D deficiency. He is on supplementation. 11. Deep venous thrombosis (DVT) prophylaxis. Patient is on Pradaxa. DISPOSITION: We will continue diuresing the patient and monitoring in the progressive care unit. He will likely benefit from physical therapy evaluation, which I will place at this time. GALID
[2017-04-07 16:00] VITALS: BP 129/87
[2017-04-07] MEDS: FUROSEMIDE 100 MG/10 ML VIAL (J1940) IV SCH (17:27)
[2017-04-07 20:26] VITALS: BP 107/70
[2017-04-07] MEDS: PRAVASTATIN 10 MG TAB PO SCH (20:46)
[2017-04-08] VITALS (7 sets, daily range): BP systolic 94–148; BP diastolic 51–76
[2017-04-08 04:19] LABS: MEAN CORPUSCULAR HEMOGLOBIN 26.2 pg (27.0-33.0); MEAN CORPUSCULAR HGB CONC 30.1 g/dl (32.0-36.5); MEAN CORPUSCULAR VOLUME 87.3 fl (80.0-96.0); RED CELL DISTRIBUTION WIDTH 16.1 % (11.5-14.5); WHITE BLOOD COUNT 5.9 K/mm3 (4.0-10.0)
[2017-04-08 04:29] LABS: ANION GAP 5 MEQ/L (8-16); BLOOD UREA NITROGEN 13 MG/DL (7-18); CALCIUM LEVEL 8.5 MG/DL (8.8-10.2); CARBON DIOXIDE LEVEL 41 MEQ/L (21-32); CHLORIDE LEVEL 85 MEQ/L (98-107); CREATININE FOR GFR 1.18 MG/DL (0.70-1.30); GLOMERULAR FILTRATION RATE > 60.0 (>49); GLUCOSE, FASTING 101 MG/DL (80-110); POTASSIUM SERUM 3.7 MEQ/L (3.5-5.1); SODIUM LEVEL 131 MEQ/L (136-145)
[2017-04-08] MEDS: SLF 3 ML SYR IV SCH ×3 (06:00→22:00)
[2017-04-08] MEDS: ACETAMINOPHEN TAB 650MG DOSE (2X325MG) PO PRN ×3 (06:17→20:45)
[2017-04-08] MEDS: FUROSEMIDE 100 MG/10 ML VIAL (J1940) IV SCH ×2 (08:04→16:14)
[2017-04-08] MEDS: PANTOPRAZOLE 40MG TAB (PROTONIX) PO SCH ×2 (08:05→20:45)
[2017-04-08] MEDS: VITAMIN D 1,000 INTERNATIONAL UNITS TABLET PO SCH (08:05)
[2017-04-08] MEDS: LISINOPRIL 40 MG TAB PO SCH (08:05)
[2017-04-08] MEDS: ALLOPURINOL 100 MG TAB PO SCH (08:05)
[2017-04-08] MEDS: DABIGATRAN ETEXILATE 75 MG CAP (PRADAXA) PO SCH ×2 (08:05→20:45)
--- NOTE | 2017-04-08 08:36 | IPN ---
DATE: 04/08/2017 Mr. Gross tells me he feels much better. He was able to sleep with CPAP last night reasonably well. He is actually asking me to go home because he feels that he is close to his baseline. He denies any chest pain or palpitations. VITAL SIGNS: Blood pressure is 119/76, heart rate is around 70s. On telemetry monitoring he is mostly in atrial fibrillation with controlled rate even though he had one episode of nonsustained VT that was relatively slow. He is afebrile. Saturation was 94% on BiPAP with 3 liters of oxygen bled in. This morning when I saw him he was in mid 90s on 3 liters of oxygen by nasal cannula. His fluid balance yesterday was about 3-1/2 liters negative and weight is 170.5 kg, which is corresponding to the volume loss. He is alert and oriented and appropriate. JVP is very difficult to assess due to his body habitus, but still appears elevated. Lungs are reasonably clear to auscultation. Heart exam reveals irregular rhythm. There is a murmur at the base. I do not appreciate gallop. Abdomen is very obese but soft. No organomegaly can be appreciated due to his size. There is still about 1+ peripheral edema. Neurologically he is intact. Laboratory tovar, basic metabolic panel sodium 131, BUN is 13, creatinine 1.2 and glucose 101. CBC WBC count 5.9, hemoglobin 10.6, hematocrit 35, platelet count 275,000. ASSESSMENT/PLAN: Mr. Gross is a 66-year-old man who has a longstanding history of morbid obesity and chronic atrial fibrillation. He presented with acute hypercarbic respiratory failure likely principally due to sleep apnea and right-sided heart failure. I do agree with current management. I will continue attempts to diuresis the patient more, even though to assess his volume status properly is challenging considering his large body size. He would like to go home, but I think it would be more appropriate to keep him in the hospital longer and try to eliminate as much fluids as possible. As far as the management of atrial fibrillation is concerned, he is currently without any rate controlling medications and his heart rate is appropriate. I will leave it as such. If we see more tachycardia, we can put him back on reduced dose of atenolol. He does complain about pain in his right wrist and believes that it might be gout, which certainly would not be surprising considering diuresis. I will give him a single dose of colchicine. The difficult part will be arranging for outpatient management of sleep apnea. [facility] but it may take a long period of time to get arranged. My inclination would be to pursue the route that will bring the fastest results. I explained that to the patient.
[2017-04-08] MEDS ORDERED: COLCHICINE 0.6 MG TAB PO ONE (10:00)
--- NOTE | 2017-04-08 11:33 | CCN ---
DATE: 04/08/2017 HISTORY OF PRESENT ILLNESS: The patient denies increase in shortness of breath. He has had significant diuresis since he has been here. He has actually had three liters of diuresis over the past 24 hours. He remains on BiPAP and is tolerating the BiPAP at night at 16/8. He has suspected obstructive sleep apnea with question of obesity hypoventilation and evidence of pulmonary hypertension. He has been known to snore and has had witnessed apneas and occasionally will awake with a morning headache. He however states that he wakes feeling well rested. He does not nap during the day. He denies falling asleep during driving. He has had no history of stroke or myocardial infarction. He does drink three to four caffeinated beverages a day. He has had no hypnagogic, hypnopompic hallucinations. No history of sleep paralysis. No history of cataplexy. No history of seizure disorder. He has teeth grinding at night. Denies kicking legs at night. He does not have a bed partner. No vivid dreams or excessive nightmares. He states he falls asleep fairly quickly and has no difficulty with sleep. He does have two brothers with obstructive sleep apnea. The patient has had snoring, witnessed apneas and morning headaches for more than six months. PHYSICAL EXAMINATION: Neck circumference today is 23 inches. Temperature 98.0. Pulse 77. Respiratory rate 20. Blood pressure 125/52 with a mean arterial pressure of 76. Oxygen saturation is currently 97% on 3 liters. General: Morbidly obese, laying supine in bed, without respiratory distress. HEENT: Sclerae clear. Nonicteric. Pupils equal and reactive to light. Mucous membranes are moist, without lesions. Tongue is midline. He has multiple missing teeth. No evidence of dental abscess. Mallampati IV. Neck circumference large, as mentioned above 23 inches. Difficult to assess jugular venous pulse (JVP). No discernible thyromegaly. Lymphs: No cervical, supraclavicular or axillary adenopathy. Cardiac: Irregularly irregular. Without audible murmur, rub or gallop. PMI is difficult to palpate. Edema is significantly less with pitting edema now only to the mid calf. On admission, it was to the mid thigh. Pulmonary: Decreased breath sounds throughout. Poor inspiratory effort. No rales, rhonchi or wheezes. No dullness to percussion. Abdomen: Obese. Soft. Nontender. Nondistended. No discernible hepatosplenomegaly. He has a well healed midline incision with reducible umbilical hernia. Extremities: Edema as mentioned above. No cyanosis or clubbing. Skin: Pale, without rashes, jaundice or bruising. Musculoskeletal: Fairly well developed. No evidence of joint effusion or fracture. Neurologic: No tremor. No evidence of seizure activity. No unilateral weakness. [place] sleepiness scale was performed. He scored a 3 out of 24. Sitting and reading was 0. Watching TV was 2. Sitting inactive in a public space was 0. As a passenger in a car for an hour without a break was 0. Lying down to rest in the afternoon when circumstances permit was a 1. Sitting and talking to someone 0. Sitting quietly after lunch without alcohol 0. In a car while stopped for a few minutes in traffic was 0. LABORATORY EVALUATION: Shows a sodium of 131, potassium 3.7, chloride 85, bicarbonate 41, BUN 13, creatinine 1.18, calcium 8.5, magnesium 2.0. White blood cell count 5.9, hemoglobin 10.6, hematocrit 35.2 with a platelet count of 275. IMPRESSIONS: 1. Acute hypoxic respiratory failure secondary to obesity, hypoventilation with pulmonary edema on admission. Significant cardiomegaly. He was treated for decompensated acute heart failure. He has had significant diuresis with improvement in systemic edema. 2. Probable obstructive sleep apnea. He is on BiPAP 16/8 in the hospital. He will require an urgent sleep study. I have evaluated him and suspect his chances of obstructive sleep apnea are very high. I suspect he has severe obstructive sleep apnea, especially due to the degree of estimated pulmonary hypertension on echocardiogram. 3. Atrial fibrillation, currently rate controlled. Followed by Dr. Garcia. 4. History of perforated gastric ulcer, on proton pump inhibitor therapy. 5. Hyponatremia, improving with diuresis. 6. Hydronephrosis on CT. Bilateral ultrasound of kidneys showed no evidence of hydronephrosis. This is likely due to findings of anasarca on the abdominal CT. PLAN: Urgent outpatient nocturnal diagnostic polysomnogram to expedite treatment at home. DEMETRIS
--- NOTE | 2017-04-08 14:53 | IPNPDOC ---
Date Seen The patient was seen on 04/08/17. Progress Note SUBJECTIVE: This morning the patient tells me that he is feeling well. He is awake and alert, oriented times three. He is oriented to situation as well. He did not have any complaints. He tells me that his shortness of breath is significantly better. he does complain of some wrist pain. he is diuresing well. OBJECTIVE: VITAL SIGNS: See Below. GENERAL: He is an elderly, morbidly obese, man sitting in bed, awake. He does not appear to be in acute distress. HEENT: He has an enlarged neck. Moist mucous membranes. Difficult to assess for any elevation in his jugular venous pulse (JVP). Although, I do feel I appreciate some there. CARDIOVASCULAR EXAM: S1, S2, irregular. no rub murmur or gallop RESPIRATORY EXAM: Distant. ABDOMINAL EXAM: Is grossly obese. EXTREMITIES: There is 1+ edema bilaterally. A renal ultrasound revealed normal bilateral kidneys without hydronephrosis. He did have a CT angiography of the chest done 04/05/2017, which revealed mild pulmonary vascular congestion, including small pericardial effusion. No focal consolidation or effusion. Echocardiogram, revealed mildly dilated left ventricle with mild left ventricular hypertrophy (LVH), preserved systolic function, mildly elevated central venous pressure, moderate pulmonary hypertension, dilated right ventricle consitent with right heart failure. ASSESSMENT AND PLAN: This is a 66-year-old man with what appears to be decompensated diastolic congestive heart failure and cor pulmonale complicated by previously undiagnosed obstructive sleep apnea and likely obesity hypoventilation syndrome presenting with acute hypercarbic respiratory failure. Plan: 1. Acute hypercarbic respiratory failure. Patient does appear to be improving with volume optimization and agree with Dr. Garcia. For the time being we will continue with Lasix 100 mg IV twice a day. Monitor his intake and output, daily weights and electrolytes. He does appear to have some hypervolemic hyponatremia , which is improving with the diuresis. We will continue to his monitor his electrolytes and replete as necessary. He is still mildly hypoxic likely related to some remaining pulmonary edema. Will continue with BIPAP at night. 2. Obstructive sleep apnea likely, although no formal diagnosis. Dr. oJshua' help was greatly appreciated. This is likely the cause for his right failure and cor pulmonale. Extensive time was spent counseling the patient at bedside on the necessity of wearing pressure therapy at night. He will need a formal sleep study and pulmonary followup. 3. Bradycardia. The patient's atenolol has been stopped. Also, since wearing BiPAP at night, he has not has had any episodes. We will continue to monitor for now. Should he become tachycardic, Dr. Garcia has recommended that we restart his atenolol at a lower dose. 4. Obesity hypoventilation syndrome (OHS). This patient likely suffers from Pickwickian syndrome. Dr. Joshua' help has been appreciated. He will benefit from further outpatient pulmonary followup. His obesity is complicating care. 5. Atrial fibrillation. He is anticoagulated with Pradaxa. He is rate controlled at this time without agents as outline above. 6. History of gastric ulcer. He is on a proton pump inhibitor (PPI). 7. Hypertension. He is on lisinopril. He is actually being diuresed. He is not hypertensive. 8. Dyslipidemia. He is on pravastatin. 9. Gout. He is on allopurinol. Got 1 dose of colchicine today. 10. Vitamin D deficiency. He is on supplementation. 11. Deep venous thrombosis (DVT) prophylaxis. Patient is on Pradaxa. 12. Morbid obesity 13. Pulmonary hypertension and right sided heart failure acute on chronic will continue on diuresis. VS, I&O, 24H, [facility] Vital Signs/I&O Vital Signs Date Time Temp Pulse Resp B/P (MAP) Pulse Ox O2 Delivery O2 Flow Rate FiO2 04/08/17 11:30 97.0 80 18 148/60 (89) 98 Nasal Cannula 3.0 04/06/17 07:53 30 I&O- Last 24 Hours up to 6 AM 04/08/17 05:59 Intake Total 960 ml Output Total 3750 ml Balance -2790 ml Laboratory Data 24H LABS Laboratory Tests 2 04/08/17 03:47: Anion Gap 5L, Glomerular Filtration Rate > 60.0, Blood Urea Nitrogen 13, Creatinine 1.18, Sodium Level 131L, Potassium Level 3.7, Chloride Level 85L, Carbon Dioxide Level 41H, Calcium Level 8.5L, Magnesium Level 2.0 CBC/BMP Laboratory Tests 04/08/17 03:47 Red Blood Count 4.03 L, Mean Corpuscular Volume 87.3, Mean Corpuscular Hemoglobin 26.2 L, Mean Corpuscular Hemoglobin Concent 30.1 L, Red Cell Distribution Width 16.1 H, Calcium Level 8.5 L Microbiology Microbiology 04/05/17 Blood Culture - Preliminary, Resulted No Growth after 48 hours. All Specime... 04/05/17 Blood Culture - Preliminary, Resulted No Growth after 48 hours. All Specime... ESTELLE HEATH MD Apr 08, 2017 14:52
[2017-04-08] MEDS: PRAVASTATIN 10 MG TAB PO SCH (20:45)
[2017-04-09 04:00] VITALS: BP 111/61
[2017-04-09 05:06] LABS: MEAN CORPUSCULAR HGB CONC 30.3 g/dl (32.0-36.5); MEAN CORPUSCULAR VOLUME 85.7 fl (80.0-96.0); WHITE BLOOD COUNT 5.8 K/mm3 (4.0-10.0)
[2017-04-09 05:15] LABS: ANION GAP 3 MEQ/L (8-16); BLOOD UREA NITROGEN 17 MG/DL (7-18); CALCIUM LEVEL 8.7 MG/DL (8.8-10.2); CARBON DIOXIDE LEVEL 43 MEQ/L (21-32); CHLORIDE LEVEL 85 MEQ/L (98-107); CREATININE FOR GFR 1.19 MG/DL (0.70-1.30); GLOMERULAR FILTRATION RATE > 60.0 (>49); GLUCOSE, FASTING 115 MG/DL (80-110); MAGNESIUM LEVEL 1.8 MG/DL (1.8-2.4); POTASSIUM SERUM 3.5 MEQ/L (3.5-5.1); SODIUM LEVEL 131 MEQ/L (136-145)
[2017-04-09] MEDS: SLF 3 ML SYR IV SCH ×3 (06:00→21:15)
[2017-04-09 08:00] VITALS: BP 115/56
--- NOTE | 2017-04-09 08:22 | IPN ---
DATE: 04/09/2017 Mr. Gross feels better. He was able to ambulate on telemetry with oxygen and had no trouble doing so. He denies any chest pain, palpitations, dizziness. His dyspnea is much better. Vital signs: Blood pressure 111/56, heart rate has been from 60s to 80s. He is afebrile. Saturation 98% on 3 liters of oxygen by nasal cannula. Jugular venous pulse (JVP) is difficult to estimate due to his body habitus but does not appear particularly high. Lungs are relatively clear to auscultation. I do not appreciate any crackles, wheezing or rhonchi. Heart exam reveals irregularly irregular rhythm. No gallop is appreciated murmur is unchanged and is rather faint. Abdomen is morbidly obese but soft. There is trace peripheral edema. Neurologically appears intact. LABORATORY DATA: Basic metabolic panel: Sodium 131, potassium 3.5, BUN 17, creatinine 1.2 and glucose 115. ASSESSMENT/PLAN: Mr. Gross is a 66-year-old morbidly obese man who has chronic atrial fibrillation. He presented with respiratory failure likely due to obstructive sleep apnea ([place]AT[place]) and resulting right-sided heart failure. He was also relatively bradycardic. The atenolol was discontinued and so far he has been maintaining good rate control of atrial fibrillation, even without it. He has been chronically anticoagulated with Pradaxa. As far the heart failure is concerned, he is on very high dose of diuretics. He already lost considerable amount of weight, according to our scales approximately 6 kg. Unfortunately, with his large body habitus, it is very difficult to estimate his volume status. But because his renal function remains stable, I would continue diuresing him even on outpatient basis. He is currently on 100 mg of Lasix twice a day IV, I would discharge him probably on 80 mg at least once a day and I would give him supplemental spironolactone as his potassium is slowly drifting down. My understanding is there is a plan to discharge him home to have to the sleep study the same night and I certainly agree. DEMETRIS
[2017-04-09] MEDS: LISINOPRIL 40 MG TAB PO SCH (09:21)
[2017-04-09] MEDS: VITAMIN D 1,000 INTERNATIONAL UNITS TABLET PO SCH (09:21)
[2017-04-09] MEDS: PANTOPRAZOLE 40MG TAB (PROTONIX) PO SCH ×2 (09:21→21:15)
[2017-04-09] MEDS: DABIGATRAN ETEXILATE 75 MG CAP (PRADAXA) PO SCH ×2 (09:21→21:14)
[2017-04-09] MEDS: ALLOPURINOL 100 MG TAB PO SCH (09:21)
[2017-04-09] MEDS: FUROSEMIDE 100 MG/10 ML VIAL (J1940) IV SCH ×2 (09:21→16:40)
[2017-04-09 12:00] VITALS: BP 108/69
--- NOTE | 2017-04-09 13:26 | IPNPDOC ---
Date Seen The patient was seen on 04/09/17. Progress Note SUBJECTIVE: This morning the patient tells me that he is feeling well. He is awake and alert, oriented times three. He is oriented to situation as well. He did not have any complaints. He tells me that his shortness of breath is significantly better. Unfortunately his sleep study though our hospital was not approved by [place]. HE has to go through his PMD in [place] and will need to be set by with a sleep study through them. remains hypoxic requiring 2 liters of oxygen. OBJECTIVE: VITAL SIGNS: See Below. GENERAL: He is an elderly, morbidly obese, man sitting in bed, awake. He does not appear to be in acute distress. HEENT: He has an enlarged neck. Moist mucous membranes. Difficult to assess for any elevation in his jugular venous pulse (JVP). Although, I do feel I appreciate some there. CARDIOVASCULAR EXAM: S1, S2, irregular. no rub murmur or gallop RESPIRATORY EXAM: Distant. ABDOMINAL EXAM: Is grossly obese. EXTREMITIES: There is 1+ edema bilaterally. A renal ultrasound revealed normal bilateral kidneys without hydronephrosis. He did have a CT angiography of the chest done 04/05/2017, which revealed mild pulmonary vascular congestion, including small pericardial effusion. No focal consolidation or effusion. Echocardiogram, revealed mildly dilated left ventricle with mild left ventricular hypertrophy (LVH), preserved systolic function, mildly elevated central venous pressure, moderate pulmonary hypertension, dilated right ventricle consistent with right heart failure. ASSESSMENT AND PLAN: This is a 66-year-old man with what appears to be decompensated diastolic congestive heart failure and cor pulmonale complicated by previously undiagnosed obstructive sleep apnea and likely obesity hypoventilation syndrome presenting with acute hypercarbic respiratory failure. Plan: 1. Acute hypercarbic respiratory failure. Patient does appear to be improving with volume optimization and agree with Dr. Garcia. For the time being we will continue with Lasix 100 mg IV twice a day. Monitor his intake and output, daily weights and electrolytes. We will continue to his monitor his electrolytes and replete as necessary. He is still mildly hypoxic likely related to some remaining pulmonary edema. Will continue with BIPAP at night. will need to be discharged home with oxygen. 2. Obstructive sleep apnea likely, although no formal diagnosis. Dr. Joshua' help was greatly appreciated. This is likely the cause for his right failure and cor pulmonale. Extensive time was spent counseling the patient at bedside on the necessity of wearing pressure therapy at night. He will need a formal sleep study and pulmonary followup. 3. Bradycardia. The patient's atenolol has been stopped. Also, since wearing BiPAP at night, he has not has had any episodes. We will continue to monitor for now. 4. Obesity hypoventilation syndrome (OHS). This patient likely suffers from Pickwickian syndrome. Dr. Joshua' help has been appreciated. He will benefit from further outpatient pulmonary followup. His obesity is complicating care. 5. Atrial fibrillation. He is anticoagulated with Pradaxa. He is rate controlled at this time without agents as outline above. 6. History of gastric ulcer. He is on a proton pump inhibitor (PPI). 7. Hypertension. He is on lisinopril. He is actually being diuresed. He is not hypertensive. 8. Dyslipidemia. He is on pravastatin. 9. Gout. He is on allopurinol. 10. Vitamin D deficiency. He is on supplementation. 11. Deep venous thrombosis (DVT) prophylaxis. Patient is on Pradaxa. 12. Morbid obesity complicating care. 13. Pulmonary hypertension and right sided heart failure acute on chronic will continue on diuresis. VS, I&O, 24H, [facility] Vital Signs/I&O Vital Signs Date Time Temp Pulse Resp B/P (MAP) Pulse Ox O2 Delivery O2 Flow Rate FiO2 04/09/17 12:00 97.1 90 18 108/69 (82) 96 Nasal Cannula 3.0 04/06/17 07:53 30 I&O- Last 24 Hours up to 6 AM 04/09/17 05:59 Intake Total 1280 ml Output Total 4200 ml Balance -2920 ml Laboratory Data 24H LABS Laboratory Tests 2 04/09/17 04:45: Anion Gap 3L, Glomerular Filtration Rate > 60.0, Blood Urea Nitrogen 17, Creatinine 1.19, Sodium Level 131L, Potassium Level 3.5, Chloride Level 85L, Carbon Dioxide Level 43H, Calcium Level 8.7L, Magnesium Level 1.8 CBC/BMP Laboratory Tests 04/09/17 04:45 Red Blood Count 3.97 L, Mean Corpuscular Volume 85.7, Mean Corpuscular Hemoglobin 26.0 L, Mean Corpuscular Hemoglobin Concent 30.3 L, Red Cell Distribution Width 16.0 H, Calcium Level 8.7 L Microbiology Microbiology 04/05/17 Blood Culture - Preliminary, Resulted No Growth after 72 hours. All specime... 04/05/17 Blood Culture - Preliminary, Resulted No Growth after 72 hours. All specime... ESTELLE HEATH MD Apr 09, 2017 13:26
[2017-04-09 15:32] LABS: ABG BASE EXCESS 15.2 (-2.0-2.0); ABG PARTIAL PRESSURE O2 98.8 mmHg (75.0-100.0); ABG TOTAL CO2 45.1 MEQ/L (23.0-31.0); ABG pH (ARTERIAL) 7.399 UNITS (7.350-7.450)
[2017-04-09 15:33] LABS: ABG PARTIAL PRESSURE CO2 71.1 mmHg (35.0-45.0)
[2017-04-09 16:00] VITALS: BP 143/85
[2017-04-09 20:00] VITALS: BP 111/61
[2017-04-09] MEDS: PRAVASTATIN 10 MG TAB PO SCH (21:15)
[2017-04-09 23:59] VITALS: BP 133/67
[2017-04-10 04:00] VITALS: BP 130/79
[2017-04-10] MEDS: SLF 3 ML SYR IV SCH (05:30)
[2017-04-10 05:34] LABS: MEAN CORPUSCULAR HEMOGLOBIN 26.3 pg (27.0-33.0); MEAN CORPUSCULAR HGB CONC 30.7 g/dl (32.0-36.5); MEAN CORPUSCULAR VOLUME 85.6 fl (80.0-96.0); WHITE BLOOD COUNT 5.2 K/mm3 (4.0-10.0)
[2017-04-10 05:55] LABS: ANION GAP 6 MEQ/L (8-16); BLOOD UREA NITROGEN 19 MG/DL (7-18); CALCIUM LEVEL 8.7 MG/DL (8.8-10.2); CARBON DIOXIDE LEVEL 39 MEQ/L (21-32); CHLORIDE LEVEL 87 MEQ/L (98-107); CREATININE FOR GFR 1.02 MG/DL (0.70-1.30); GLOMERULAR FILTRATION RATE > 60.0 (>49); GLUCOSE, FASTING 94 MG/DL (80-110); POTASSIUM SERUM 3.6 MEQ/L (3.5-5.1); SODIUM LEVEL 132 MEQ/L (136-145)
[2017-04-10 08:00] VITALS: BP 114/51
[2017-04-10] MEDS: FUROSEMIDE 100 MG/10 ML VIAL (J1940) IV SCH (08:27)
[2017-04-10] MEDS: PANTOPRAZOLE 40MG TAB (PROTONIX) PO SCH (08:28)
[2017-04-10] MEDS: ALLOPURINOL 100 MG TAB PO SCH (08:28)
[2017-04-10] MEDS: VITAMIN D 1,000 INTERNATIONAL UNITS TABLET PO SCH (08:28)
[2017-04-10] MEDS: LISINOPRIL 40 MG TAB PO SCH (08:28)
[2017-04-10] MEDS: DABIGATRAN ETEXILATE 75 MG CAP (PRADAXA) PO SCH (08:28)
--- NOTE | 2017-04-10 08:50 | IPN ---
DATE: 04/10/2017 Mr. Gross is feeling yet again better. He denies any dyspnea with ambulation yesterday. He wants to go home and there is a plan to discharge him later today. Vital signs reveal blood pressure 114/51. Heart rate has been from 50s to 80s. Saturation 96% on 2 liters of oxygen by nasal cannula. Fluid balance yesterday was documented as 1700 mL negative and weight is 163 kg which is approximately 7 kg weight loss since admission. He is alert, oriented and appropriate. His jugular venous pulse (JVP) is difficult to assess due to body habitus, but does not appear grossly elevated. Lungs are fairly clear to auscultation with good air movement. Heart exam irregularly irregular rhythm. No gallop is noted. Abdomen is very obese, but soft. I am unable to estimate liver and spleen size. Extremities are essentially free of edema. Laboratory-tovar, hemoglobin 10.7, hematocrit 34 and platelet count 223,000. Basic metabolic panel: Sodium 132, potassium 3.6, BUN 19, creatinine 1, and glucose 94. ASSESSMENT/PLAN: Mr. Gross is a 66-year-old man who has chronic atrial fibrillation, likely sleep apnea and morbid obesity leading to right-sided congestive heart failure. He presented with respiratory failure with CO2 retention. He was initially treated with BiPap with good effect. Simultaneously diuresed. It is difficult to estimate his volume status due to his large size, but I think there is probably still space for more diuresis. As far as atrial fibrillation is concerned, he was on 50 mg of atenolol daily on an outpatient basis, but now he is down to no AV bernie blocking agent and his heart rate is still well controlled. We will discharge him as such. I plan to see him in followup next week.
[2017-04-10] MEDS ORDERED: LASI80TA PO (09:40)
[2017-04-10] MEDS ORDERED: SPIR25TA2 PO (09:40)
--- NOTE | 2017-04-12 10:51 | DSES ---
DATE OF ADMISSION: 04/05/2017 DATE OF DISCHARGE: 04/10/2017 PRIMARY CARE PROVIDER: At the [facility] (OR) [place]. DISCHARGE DIAGNOSES: Acute on chronic hypercarbic and hypoxic respiratory failure. Likely obstructive sleep apnea. Will need a formal polysomnography as an outpatient. Likely obesity hypoventilation syndrome. Atrial fibrillation, on Pradaxa. Bradycardia due to medications. Stopped atenolol. History of gastric ulcer and gastrointestinal (GI) bleed in the past. Hypertension. Hyperlipemia. Gout. Vitamin D deficiency. Morbid obesity. Pulmonary hypertension and right-sided heart failure. Congestive heart failure, systolic and diastolic with ejection fraction (EF) of 50%. Congestive heart failure exacerbation. DISCHARGE MEDICATIONS: - Lasix 80 mg by mouth twice a day - spironolactone 25 mg by mouth daily - acetaminophen 650 mg by mouth every 6 hours as needed pain - allopurinol 200 mg by mouth daily - cholecalciferol 1000 units by mouth daily - Pradaxa 150 mg by mouth twice a day - lisinopril 40 mg by mouth daily - pantoprazole 40 mg by mouth twice a day - pravastatin 10 mg by mouth daily HOSPITAL COURSE: This is a 66-year-old male who follows at the OR, presented to the hospital for progressive shortness of breath to the point that he could not breathe and presented to the emergency room. In the emergency department (ED), patient was found to have hypoxic and hypercarbic respiratory failure. Patient was morbidly obese and was put on bilevel positive airway pressure (BiPAP) ventilation. Patient tolerated BiPAP very well. In the hospital, patient was felt to have obstructive sleep apnea and also obesity hypoventilation syndrome; however, he never had a formal sleep study done. He was also in chronic atrial fibrillation, and it was noted that he was becoming bradycardic severely, especially when he was sleeping, so his atenolol was discontinued with improvement in his heart rate. In the hospital, patient was treated aggressively with diuresis, and patient lost about 6 kg of body of body weight in the hospital. With that, his shortness of breath improved. His arterial blood gasses (ABGs) stabilized with a pH of 7.39, pCO2 of 71, and pO2 of 98 with 3 liters via nasal cannula, and it was felt that this is close to his baseline. We tried to set him up for an outpatient sleep study through our hospital, however, it was not approved by OR. Patient apparently needs to be referred to the steel tester and for sleep study through the OR system. Patient was noted to be persistently hypoxic at rest with oxygen saturations dropping below 87% on room air, so the patient was prescribed home oxygen to be used 24/7 at 2 liters. Patient was advised to maintain fluid restriction and to [facility] as soon as possible. On the day of discharge, patient was comfortable, did not offer any complaints. Vital signs were stable, and he was functionally at baseline. PHYSICAL EXAM: VITAL SIGNS: Temperature 97.9, pulse 58, respiratory rate 18, blood pressure 114/51, pulse oximetry 96% with 2 liters and 87% on room air. GENERAL: Patient awake, alert, oriented times three. Lying down in bed, in no acute distress. HEENT: Normocephalic, atraumatic. Morbidly obese. Moist mucous membranes. Anicteric eyes. CHEST: Very distant breath sounds, otherwise clear to auscultation. CARDIOVASCULAR: S1, S2, irregular. ABDOMEN: Obese, soft, nontender. Bowel sounds present. EXTREMITIES: Trace edema. LABORATORY DATA: WBC 5.2, hemoglobin 10.7, platelets 223. Sodium 132, potassium 3.6, chloride 87, bicarbonate 39, BUN 19, creatinine 1, glucose 94, calcium 8.7, magnesium 2. ABG; pH 7.39, pCO2 71, pO2 98 with 2 liters nasal cannula. Chest x-ray showed cardiomegaly, no acute cardiopulmonary process. CT angiogram of the chest showed mild pulmonary vascular congestion, cardiomegaly. No pulmonary embolism. No focal consolidation or effusion. Renal ultrasound; normal bilateral kidneys without hydronephrosis. Moderate distention of the bladder without focal abnormality. Vascular ultrasound; there was no evidence of deep venous thrombosis (DVT) in bilateral lower extremities. There are bilateral [place] cysts. DISPOSITION: Patient is discharged home in stable condition. DISCHARGE INSTRUCTIONS: Patient to followup with primary care provider within 1 week. Patient should be referred to a steel tester and sleep study at the earliest. Patient should followup with Dr. Garcia in 1 week. Fluid restriction 1.5 liters, a 2-gram sodium diet, activity as tolerated.
== END 2017-04-10 11:50 | disposition home health service (06) | DRG 291 ==
LOC: M ED 14:34 → M ED INP 19:34 → M ICU 20:50 → M PCU 04-06 16:47
PROVIDERS: ADMIT Internal Medicine Pulmonary Disease; ATTEND Internal Medicine Nephrology
DX: I11.0 Hypertensive heart disease with heart failure (principal); J96.01 Acute respiratory failure with hypoxia; J96.02 Acute respiratory failure with hypercapnia; E87.1 Hypo-osmolality and hyponatremia; E66.2 Morbid (severe) obesity with alveolar hypoventilation; I50.43 Acute on chronic combined systolic (congestive) and diastolic (congestive) heart failure; E87.5 Hyperkalemia; I48.2 Chronic atrial fibrillation; E78.5 Hyperlipidemia, unspecified; K21.9 Gastro-esophageal reflux disease without esophagitis; Z79.899 Other long term (current) drug therapy; Z87.891 Personal history of nicotine dependence; Z79.01 Long term (current) use of anticoagulants; I27.81 Cor pulmonale (chronic); E55.9 Vitamin D deficiency, unspecified; M10.031 Idiopathic gout, right wrist; R00.1 Bradycardia, unspecified; T44.7X5A Adverse effect of beta-adrenoreceptor antagonists, initial encounter

== ENCOUNTER 2017-05-14 07:30 | Day surgery (SDC) | payer OTHER ==
[~2017-05-14] VITALS: Ht 180.3 cm; Wt 158.8 kg
[~2017-05-14 07:30] MED LIST changes: +LASI80TA PO; +PANT40TA2 PO; +POTA10TA16 PO; +PRAD150C PO; +PRAV20TA2 PO; +SPIR25TA2 PO; +VITA-122 PO
[2017-05-14] MEDS ORDERED: LR 1,000 ML IV ONE (07:45)
[2017-05-14] MEDS ORDERED: LIDOCAINE 1% MDV 20ML VIAL SC PRN (07:45)
[2017-05-14] MEDS ORDERED: PROPOFOL 200 MG/20 ML VIAL As Ordered ONE (09:03)
[2017-05-14] MEDS ORDERED: LIDOCAINE 2% INJ 100 MG/5 ML SDV (FOR ANES.) As Ordered ONE (09:03)
--- NOTE | 2017-05-14 11:30 | ROOR ---
Patient Name: Kunal Gross Procedure Date: 05/14/2017 10:30 AM Date of : 1950 Age: 66 Room: Main OR Gender: Male Note Status: Finalized Procedure: Upper GI endoscopy Indications: Follow-up of acute gastric ulcer with hemorrhage and obstruction, Follow-up of acute gastric ulcer (with hemorrhage, perforation, and obstruction) Providers: Julian WELLINGTON MD Referring MD: [facility], Admin[facility] Stephany Garcia MD Requesting Provider: Medicines: Monitored Anesthesia Care Complications: No immediate complications. Procedure: Pre-Anesthesia Assessment: - The heart rate, respiratory rate, oxygen saturations, blood pressure, adequacy of pulmonary ventilation, and response to care were monitored throughout the procedure. The Endoscope was introduced through the mouth, and advanced to the second part of duodenum. The upper GI endoscopy was accomplished without difficulty. The patient tolerated the procedure well. Findings: The Z-line was variable and was found 38 cm from the incisors. A deformity was found in the prepyloric region of the stomach. A medium healed ulcer was found in the prepyloric region of the stomach. The scar tissue was healthy in appearance. This was biopsied with a cold forceps for Helicobacter pylori testing. The examined duodenum was normal. Impression: - Z-line variable, 38 cm from the incisors. - Acquired deformity in the prepyloric region of the stomach related to previous surgery and related to previous ulcer disease. This has completely healed. - Scar in the prepyloric region of the stomach. Biopsied. - Normal examined duodenum. Recommendation: - Due to two severe complications of previous peptic ulcer disease (perforation/surgical repair in remote past, and recent severe ulcer hemorrhage, I recommend use a proton pump inhibitor (i.e. Protonix) daily for the rest of the patient's life. - Use Protonix (pantoprazole) 40 mg daily for the rest of the patient's life. - Resume Pradaxa (dabigatran) at prior dose today. Refer to managing physician for further adjustment of therapy. - Return to referring physician as previously scheduled. Julian Wellington MD Julian WELLINGTON MD 05/14/2017 11:29:39 AM This report has been signed electronically. Number of Addenda: 0 Note Initiated On: 05/14/2017 10:30 AM Estimated Blood Loss: Estimated blood loss: none.
--- NOTE | 2017-05-14 11:32 | ROOR ---
Patient Name: Kunal Gross Procedure Date: 05/14/2017 10:28 AM Date of : 1950 Age: 66 Room: Main OR Gender: Male Note Status: Finalized Procedure: Colonoscopy Indications: Screening for colorectal malignant neoplasm Providers: Julian WELLINGTON MD Referring MD: [facility], Admin., Stephany Garcia MD Requesting Provider: Medicines: Monitored Anesthesia Care Complications: No immediate complications. Procedure: Pre-Anesthesia Assessment: - The heart rate, respiratory rate, oxygen saturations, blood pressure, adequacy of pulmonary ventilation, and response to care were monitored throughout the procedure. The Colonoscope was introduced through the anus and advanced to the cecum, identified by appendiceal orifice and ileocecal valve. The colonoscopy was performed without difficulty. The patient tolerated the procedure well. The quality of the bowel preparation was good. Findings: The perianal and digital rectal examinations were normal. A few small-mouthed diverticula were found in the sigmoid colon. Small Internal Hemorrhoids. The entire examined colon appeared normal on direct and retroflexion views. Impression: - Mild diverticulosis in the sigmoid colon. - Small Internal Hemorrhoids. - The entire examined colon is normal on direct and retroflexion views. - No specimens collected. Recommendation: - Repeat colonoscopy in 10 years for screening purposes. - Return to referring physician as previously scheduled. - Resume Pradaxa (dabigatran) at prior dose today. Julian Wellington MD Julain WELLINGTON MD 05/14/2017 11:32:14 AM This report has been signed electronically. Number of Addenda: 0 Note Initiated On: 05/14/2017 10:28 AM Estimated Blood Loss: Estimated blood loss: none.
[2017-05-14 11:45] VITALS: BP 100/61
== END 2017-05-14 12:07 | disposition home or self-care (01) ==
LOC: M SDC 07:30
PROVIDERS: ATTEND Internal Medicine Gastroenterology
DX: Z12.11 Encounter for screening for malignant neoplasm of colon (principal); K57.30 Diverticulosis of large intestine without perforation or abscess without bleeding; K64.8 Other hemorrhoids; K25.2 Acute gastric ulcer with both hemorrhage and perforation; K22.8 Other specified diseases of esophagus; K31.89 Other diseases of stomach and duodenum; I48.2 Chronic atrial fibrillation; E78.00 Pure hypercholesterolemia, unspecified; D64.9 Anemia, unspecified; I11.0 Hypertensive heart disease with heart failure; I50.9 Heart failure, unspecified; I25.10 Atherosclerotic heart disease of native coronary artery without angina pectoris; E78.5 Hyperlipidemia, unspecified; K21.9 Gastro-esophageal reflux disease without esophagitis; G47.9 Sleep disorder, unspecified; Z79.899 Other long term (current) drug therapy; Z79.01 Long term (current) use of anticoagulants
CPT/HCPCS: 43239; 88305; G0121